=== PATIENT | female | born 1970 | race Caucasian/White ===

== ENCOUNTER → 2019-01-23 11:46 | Outpatient (CLI) | payer BC, SELFPAY ==
--- NOTE | 2019-01-23 | IMM_PTH ---
PATIENT: DERIK SIU LOC: [facility] U#:[id number] AGE/SX: 54/F ROOM: RE01/23/[address]: Dr. Dwayne Roth MD : 1970 BED: DIS: SPEC #: [id number] RECD: 01/24/19 13:43 STATUS: NARAYAN REDenise #: [id number] AGUS: 01/23/19 00:[address]: Dwayne Roth DEPT: IMMUNOHISTOCHEMISTRY RECD BY: Cris Griffiths Tissues: Skin, NOS Procedures: CK5-6 (add) P53 (add) Vimentin (add) Pankeratin (initial) MELAN-A (add) P40 (add) S-100 (add) PHYSICIAN & INSTITUTION [place] [id number] SPECIMEN INFORMATION: Tissue Source: Irregular nevus excision Clinical Info: Rule out melanoma Specimen Number: [id number] CPT code: 94729, 29934 x7 METHODOLOGY: Deparaffinized sections of prefer/formalin-fixed tissue or PAP/DQ stained slides are incubated with monoclonal/polyclonal antibodies/oligonucleotide probes. Localization is made via biotin free immunoperoxidase method. Appropriate controls are performed and reacted as expected. Results on target cell population are indicated in the following table: RESULTS: ANTIBODY / CLONE RESULT AE1-3 (AE1/AE3/PCK26) positive P40 (BC28) positive CK5-6 (D5 & 1684) positive S-100 (4C4.9) negative Melan A (A103) negative Vimentin (V9) negative P53 (DO-7) negative These tests were developed and their performance characteristics determined by [facility]. They may not have been cleared or approved by the U.S. Food and Drug Administration. The FDA has determined that such clearance or approval is not necessary. INTERPRETATION: Irregular nevus, shave biopsy: Consistent with pigmented seborrheic keratosis. AM:elham 01/25/19
--- NOTE | 2019-01-23 09:45 | LES_PTH ---
PATIENT: DERIK SIU LOC: [facility] U#:[id number] AGE/SX: 54/F ROOM: RE01/23/[address]: Dr. Dwayne Roth MD : 1970 BED: DIS: SPEC #: [id number] RECD: 01/23/19 12:54 STATUS: NARAYAN FANNY #: [id number] AGUS: 01/23/19 09:[address]: Dwayne Roth DEPT: SURGICAL PATHOLOGY RECD BY: Cris Griffiths Tissues: Skin, NOS Procedures: Surgery Specimen Level IV HEADER OPERATION: Excision PRE-OP DIAGNOSIS: Rule out melanoma TISSUE SUBMITTED: Irregular nevus excision MICROSCOPIC DIAGNOSIS Irregular nevus, shave biopsy: Pigmented seborrheic keratosis. See comment. AM:elham 01/24/19 COMMENT Immunohistochemistry ([id number]) supports the above diagnosis. MICROSCOPIC DESCRIPTION Slides are reviewed. GROSS DESCRIPTION Received in fixative is one container labeled with the patient's name and designated nevus. The specimen consists of a shave biopsy of ortiz-white skin measuring 1 x 0.5 x 0.1 cm. There is an ovoid brown lesion on the surface measuring 0.6 x 0.3 cm. The specimen is inked and submitted entirely in one cassette. It will be serially sectioned at the time of embedding. / SJ:rg 01/23/19 TC:5 CPT: 22733
== END ==
PROVIDERS: Family Provider Family Medicine; PCP Family Medicine; Referring Provider Family Medicine; Visit Provider Family Medicine
DX: D22.9 Melanocytic nevi, unspecified (principal)
CPT/HCPCS: 88304; 88305; 88341; 88342

== ENCOUNTER 2019-10-23 12:24 | Emergency (ER) | payer OTHER, BC, SELFPAY ==
[2019-10-23 12:26] VITALS: BP 128/83; PULSE 73; RESP 18; TEMP 36.6; O2SAT 96; BMI 24.7
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
[2019-10-23 13:54] VITALS: BP 122/88; PULSE 71; RESP 16; O2SAT 99
== END 2019-10-23 13:55 | disposition home or self-care (01) ==
LOC: ED 12:48
PROVIDERS: Emergency Provider Emergency Medicine; Family Provider Family Medicine; PCP Family Medicine
DX: R07.0 Pain in throat (principal); Y04.2XXA Assault by strike against or bumped into by another person, initial encounter; F17.200 Nicotine dependence, unspecified, uncomplicated
CPT/HCPCS: 70360; 99282

== ENCOUNTER → 2021-01-22 15:11 | Outpatient (CLI) | payer OTHER, SELFPAY ==
[2021-01-28 11:10] LABS: HPV APTIMA, High Risk Negative (Negative)
[2021-01-28 11:11] LABS: HPV Reflexed? YES, CHARGE PATIENT
== END ==
PROVIDERS: PCP Family Medicine; Visit Provider Nurse Practitioner Family
DX: Z01.419 Encounter for gynecological examination (general) (routine) without abnormal findings (principal)
CPT/HCPCS: 87624; 88175; G0145

== ENCOUNTER → 2021-01-28 07:14 | Outpatient (CLI) | payer OTHER, SELFPAY ==
[2021-01-28 10:35] LABS: Vitamin D,25 Hydroxy 53.9 ng/mL
[2021-01-28 10:57] LABS: Anion Gap 5 (5-15); BUN 16 mg/dL (7-18); BUN/Creat Ratio 21.3 RATIO (10-20); Calcium,Total 8.8 mg/dL (8.5-10.1); Chloride 106 mmol/L (98-107); Cholesterol 225 mg/dL (200); Creatinine, Serum 0.75 mg/dL (0.55-1.02); EST Glomerular Filtration Rate 87 mL/min (>60); Est Glom Filt Rate - Afr Amer 105 mL/min (>60); Glucose 100 mg/dL (74-106); High Density Lipoprotein 65 mg/dL; Sodium Level 139 mmol/L (136-145); Thyroid Stim Hormone (TSH) 2.62 uIU/mL (0.358-3.74); Triglycerides 72 mg/dL; Very Low Density Lipoprotein 14 mg/dL (5-40)
== END ==
LOC: MTLAB 07:15
PROVIDERS: PCP Family Medicine; Referring Provider Family Medicine; Visit Provider Family Medicine
DX: R73.01 Impaired fasting glucose (principal); F32.9 Major depressive disorder, single episode, unspecified
CPT/HCPCS: 36415; 80048; 80061; 82306; 84443

== ENCOUNTER → 2021-02-03 15:15 | Outpatient (CLI) | payer OTHER, SELFPAY ==
--- NOTE | 2021-02-03 15:32 | BI_ITS ---
MAMMOGRAPHY - BILATERAL SCREENING REASON FOR EXAM: Female, 50 years old. Routine annual screening examination. PERTINENT HISTORY: Non-contributory. TECHNIQUE: Digital bilateral breast dino (3D mammographic acquisition) in the CC and MLO projections. 2-D mediolateral oblique (MLO) and craniocaudad (CC) views of both breasts were obtained. CAD: Full Field Digital Mammography with Computer Added Detection was performed. COMPARISON: Comparison is made with prior outside examination dated 12/24/2014. FINDINGS: Breast Composition: There are scattered areas of fibroglandular density. There are no dominant masses or suspicious calcifications. Stable small benign-appearing bilateral axillary lymph nodes. No other significant abnormalities are identified. There has been no significant change since the prior study. BI/SCRN MAMM (CAD)W/DINO BILAT IMPRESSION: Stable bilateral screening mammogram. Yearly follow-up mammogram recommended. (A) ASSESSMENT CATEGORY: BIRADS Category 2: Benign. A letter regarding these results will be sent to the patient by the facility within 30 days. Approximately 10% of breast cancers are not detected by mammography. A normal mammogram should not delay biopsy of a clinically suspicious abnormality. [id number] Electronically Signed: Willian Marin MD at 8:10 EDT , Service support ,
== END ==
PROVIDERS: PCP Family Medicine; Referring Provider Family Medicine; Visit Provider Family Medicine
DX: Z12.31 Encounter for screening mammogram for malignant neoplasm of breast (principal)
CPT/HCPCS: 77063; 77067

== ENCOUNTER 2022-01-29 14:11 | Outpatient (CLI) | payer OTHER, SELFPAY ==
--- NOTE | 2022-01-29 14:14 | CT_ITS ---
STUDY: LOW DOSE CT LUNG CANCER SCREENING REASON FOR EXAM: Female, 51 years old. Current smoker, one half pack per day x33 years RADIATION DOSAGE (If Supplied By Facility): CTDIvol = ( 2.01 ) mGy, DLP = ( 68.71 ) mGycm TECHNIQUE: No contrast was administered. Low dose technique was utilized (average mAS-38 and kVp 120). 1.25 mm axial source images with a slice interval of 1.25-mm were reconstructed in lung windows. 2.5 mm axial source images with a slice interval of 2.5-mm were reconstructed in lung windows. 5.0 mm axial source images with a slice interval of 5.0-mm were reconstructed in soft tissue windows. Nodule measured using lung windows on PACS and/or independent workstation with automated measurement of minimum and maximum diameter. Nodule measurement reported as average diameter rounded to the nearest whole number. Growth is defined as an increase ins size of greater than 1.5 mm. COMPARISON: None. FINDINGS: Lung windows show underlying emphysema with chronic interstitial changes. There is no organized trait, or suspicious noncalcified mass or nodule. Limited soft tissue evaluation shows a normal thyroid gland. No suspicious adenopathy. No calcified coronary vessels, no pleural or pericardial effusions. Bony structures show degenerative change Limited cuts of the upper abdomen do not show a suspicious abnormality CT/Low Dose CT Lung Screening IMPRESSION: Lung-RADS category 2 - Continue annual screening with LDCT in 12 months. IMPORTANT NOTES FOR USE: ACR Lung-RADS Version 1.1 Assessment Categories Release Date: 2018 Category: Coded 0-4 bases on nodule(s) with highest degree of suspicion. Negative screen is defined as categories 1 and 2; a positive screen is defined as categories 3 and 4. Category 3 and 4A nodules that are unchanged on interval CT should be coded as category 2, and individuals returned to screening in 12 months. Category 4X: Category 3 or 4 nodules with additional imaging findings that increase the suspicion of lung cancer, such as spiculation, GGN that doubles in size in 1 year, enlarged lymph notes, etc. Category Modifiers: S (significant finding unrelated to lung cancer) Electronically Signed: Sajan Camargo MD at 17:46 EST ,
== END 2022-01-29 23:59 | disposition home or self-care (01) ==
LOC: CT 14:13
PROVIDERS: PCP Family Medicine; Referring Provider Family Medicine; Visit Provider Family Medicine
DX: F17.200 Nicotine dependence, unspecified, uncomplicated (principal)
CPT/HCPCS: 71271

== ENCOUNTER 2022-02-04 11:10 | Outpatient (CLI) | payer OTHER, SELFPAY ==
--- NOTE | 2022-02-04 11:24 | BI_ITS ---
MAMMOGRAPHY - BILATERAL SCREENING 3-D TOMOSYNTHESIS REASON FOR EXAM: Female, 51 years old. SCREENING PERTINENT HISTORY: No significant family history. TECHNIQUE: 2-D mammograms and 3-D Tomosynthesis of the breast (s) were performed. CAD was performed. COMPARISON: 02/03/2021 FINDINGS: The breast composition is composed of scattered fibroglandular density. Scattered benign calcifications are seen. No dense spiculated masses or suspicious microcalcifications are identified. No architectural distortion is identified. There is no skin thickening or retraction. There has been no significant change since the prior study. BI/SCRN MAMM (CAD)W/DINO BILAT IMPRESSION: No mammographic signs of malignancy. Routine yearly mammograms recommended. ASSESSMENT CATEGORY: BIRADS Category 1: Negative. A letter regarding these results will be sent to the patient by the facility within 30 days. FOLLOW UP RECOMMENDATION: Yearly follow up mammogram recommended. (A) Approximately 10% of breast cancers are not detected by mammography. A normal mammogram should not delay biopsy of a clinically suspicious abnormality. Electronically Signed: Itz Irwin MD at 13:11 EDT ,
== END 2022-02-04 23:59 | disposition home or self-care (01) ==
LOC: OPBI 11:11
PROVIDERS: PCP Family Medicine; Referring Provider Family Medicine; Visit Provider Family Medicine
DX: Z12.31 Encounter for screening mammogram for malignant neoplasm of breast (principal)
CPT/HCPCS: 77063; 77067

== ENCOUNTER → 2023-01-24 | Outpatient (CLI) | payer OTHER, SELFPAY ==
[2023-01-24 13:35] LABS: Vitamin B12 > 2000 pg/mL (211-911); Vitamin D,25 Hydroxy 54.4 ng/mL
[2023-01-24 13:57] LABS: ALB/GLOB Ratio 1.1 RATIO (0.9-2.4); AST(SGOT) 14 U/L (15-37); Alanine Aminotransfer ALT/SGPT 21 U/L (13-56); Albumin, Serum 3.8 g/dL (3.2-5.0); Alkaline Phosphatase 83 U/L (45-117); Anion Gap 8 (5-15); BUN 16 mg/dL (7-18); BUN/Creat Ratio 20.7 RATIO (10-20); Bilirubin, Direct 0.16 mg/dL (0.00-0.30); Chloride 104 mmol/L (98-107); Cholesterol 213 mg/dL (200); Creatinine, Serum 0.77 mg/dL (0.55-1.02); EST Glomerular Filtration Rate 83 mL/min (>60); Est Glom Filt Rate - Afr Amer 100 mL/min (>60); Globulin 3.5 g/dL (2.2-4.2); Glucose 101 mg/dL (74-106); High Density Lipoprotein 73 mg/dL; Potassium 4.1 mmol/L (3.5-5.1); Protein, Total 7.3 g/dL (6.4-8.2); Sodium Level 139 mmol/L (136-145); Thyroid Stim Hormone (TSH) 2.03 uIU/mL (0.358-3.74); Triglycerides 55 mg/dL; Very Low Density Lipoprotein 11 mg/dL (5-40)
== END | disposition home or self-care (01) ==
LOC: MFPLAB 10:43
PROVIDERS: PCP Family Medicine; Visit Provider Family Medicine
DX: R53.83 Other fatigue (principal); K21.9 Gastro-esophageal reflux disease without esophagitis; Z13.220 Encounter for screening for lipoid disorders
CPT/HCPCS: 36415; 80053; 80061; 82248; 82306; 82607; 84443

== ENCOUNTER → 2023-02-04 | Outpatient (CLI) | payer OTHER, SELFPAY ==
--- NOTE | 2023-02-04 14:01 | CT_ITS ---
HISTORY: nondependent tobacco use disorder. TECHNIQUE: Helically acquired images were obtained of the chest without contrast. A radiation dose optimization technique was used for this scan. 816 images. COMPARISON: 01/29/2022. FINDINGS: LARGE AIRWAYS: Patent. LUNGS: Emphysema with chronic biapical scarring. Stable 2 to 3 mm groundglass, noncalcified nodules, and small scars predominantly in the upper lobes. PLEURA: No pneumothorax or significant pleural effusion. HEART/PERICARDIUM: Heart within normal limits in size. Coronary artery calcification present. No pericardial effusion. VESSELS: Thoracic aorta nondilated. Mild atherosclerosis. MEDIASTINUM/VELIA: Stable small precarinal lymph node. UPPER ABDOMEN: Unremarkable. BONES: Degenerative change. CT/Low Dose CT Lung Screening IMPRESSION: No significant interval change in emphysema with 2 to 3 mm pulmonary nodules. Lung RADS category 2: Continue annual screening with low dose CT. Electronically Signed: Ida Seymour MD at 15:21 EDT ,
== END | disposition home or self-care (01) ==
LOC: CT 14:01
PROVIDERS: PCP Family Medicine; Referring Provider Family Medicine; Visit Provider Family Medicine
DX: F17.200 Nicotine dependence, unspecified, uncomplicated (principal)
CPT/HCPCS: 71271

== ENCOUNTER → 2023-02-11 | Outpatient (CLI) | payer OTHER, SELFPAY ==
--- NOTE | 2023-02-11 10:17 | BI_ITS ---
MAMMOGRAPHY - BILATERAL SCREENING REASON FOR EXAM: Female, 52 years old. Routine annual screening examination. PERTINENT HISTORY: Non-contributory. TECHNIQUE: Digital bilateral breast dino (3D mammographic acquisition) in the CC and MLO projections. 2-D mediolateral oblique (MLO) and craniocaudad (CC) views of both breasts were obtained. CAD: Full Field Digital Mammography with Computer Added Detection was performed. COMPARISON: Comparison is made with prior study dated February 04, 2022 and February 03, 2021. FINDINGS: Breast Composition: There are scattered areas of fibroglandular density. There are no dominant masses or suspicious calcifications. Stable benign-appearing bilateral axillary lymph nodes. No other significant abnormalities are identified. There has been no significant change since the prior study. BI/SCRN MAMM (CAD)W/DINO BILAT IMPRESSION: Stable bilateral screening mammogram. Yearly follow-up mammogram recommended. (A) ASSESSMENT CATEGORY: BIRADS Category 2: Benign. A letter regarding these results will be sent to the patient by the facility within 30 days. Approximately 10% of breast cancers are not detected by mammography. A normal mammogram should not delay biopsy of a clinically suspicious abnormality. [id number] Electronically Signed: Willian Marin MD at 11:54 EDT ,
== END | disposition home or self-care (01) ==
LOC: OPBI 10:16
PROVIDERS: PCP Family Medicine; Referring Provider Family Medicine; Visit Provider Family Medicine
DX: Z12.31 Encounter for screening mammogram for malignant neoplasm of breast (principal)
CPT/HCPCS: 77063; 77067

== ENCOUNTER → 2024-02-01 | Outpatient (CLI) | payer OTHER, SELFPAY ==
[2024-02-01 12:19] LABS: Hematocrit 42.8 % (37-47); Hemoglobin 13.8 g/dL (12.0-15.0); Mean Corp Hgb Conc 32.2 g/dL (32-36); Mean Corpuscular Hgb 31.9 pg (27.0-32.0); Mean Corpuscular Volume 98.8 fL (81-99); Platelet Count 419 K/mm3 (150-450); RBC Distribution Width CV 13.7 % (11.6-14.6); RBC Distribution Width SD 49.9 fl (35.1-43.9); Red Blood Count 4.33 M/mm3 (4.2-5.4); White Blood Count 8.9 K/mm3 (4.4-11.0)
[2024-02-01 12:50] LABS: Anion Gap 8 (5-15); BUN 9 mg/dL (7-18); Calcium,Total 9.4 mg/dL (8.5-10.1); Chloride 103 mmol/L (98-107); Cholesterol 208 mg/dL (200); Creatinine, Serum 0.69 mg/dL (0.55-1.02); EST Glomerular Filtration Rate 94 mL/min (>60); Est Glom Filt Rate - Afr Amer 114 mL/min (>60); Glucose 103 mg/dL (74-106); High Density Lipoprotein 65 mg/dL; Potassium 4.1 mmol/L (3.5-5.1); Sodium Level 139 mmol/L (136-145); Triglycerides 89 mg/dL; Very Low Density Lipoprotein 18 mg/dL (5-40)
[2024-02-01 12:51] LABS: Vitamin B12 547 pg/mL (211-911); Vitamin D,25 Hydroxy 56.8 ng/mL
--- OUTSIDE RECORDS SUMMARY | 2024-02-01 13:14 | XMS RPT_ITS | CCD ---
Author Name Unknown Address [address] [place] [address] Organization [facility] Care Team Providers Care Manager Telemarketing Name Role Phone KATHRINE JACOBO Attending Unavailable LEVI AMES Primary Care Unavail able Results Test Name Value Interpretation Reference Range Facil ity Encounters Encounter Date Encounter Type Care Provider Facility Start: 05-25-2022 End: 05-25-2022 Emergency department patient visit KATHRINE ALVAERZAron JACOBO [facility] Payers Date Payer Category Payer Worker's Compensation [id number] 1970 Unknown [id number] Summary Purpose Family History No Family History Records FoundNo Family History Records Found Advance Directives No Advanced Directives Records FoundNo Advanced Directives Records Found Additional Source Comments INFORMATION SOURCE (unrecogn ized section and content) DATE CREATED AUTHOR AUTHOR'S ORGANIZ ATION 05/29/2022 [facility] nter FOR RECORDS PERTAINING TO PATIENTS WHO ARE OR HAVE BEEN ENROLLED IN A CHEMICAL DEPENDENCY/SUBSTANCEABUSE PROGRAM, SOME INFORMATION MAY BE OMITTED. This clinical summary was aggregated from multiple sources. Caution should be exercised in using it in the provision of clinical care. This summary normalizes information from multiple sources, and as a consequence, information in this document may materially change the coding, format and clinical context of patient data. In addition, data may be omitted in some cases. CLINICAL DECISIONS SHOULD BE BASED ON THE PRIMARY CLINICAL RECORDS. [facility] [employer] provides no warranty or guarantee of the accuracy or completeness of information in this document.
== END | disposition home or self-care (01) ==
LOC: MFPLAB 10:21
PROVIDERS: PCP Family Medicine; Visit Provider Family Medicine
DX: F17.200 Nicotine dependence, unspecified, uncomplicated (principal); R53.83 Other fatigue; R73.01 Impaired fasting glucose
CPT/HCPCS: 36415; 80048; 80061; 82306; 82607; 85027

== ENCOUNTER → 2024-02-17 | Outpatient (CLI) | payer OTHER, SELFPAY ==
--- NOTE | 2024-02-17 12:47 | CT_ITS ---
EXAM: CT CHEST, LUNG CANCER SCREENING WITHOUT INTRAVENOUS CONTRAST CLINICAL INDICATION: and gt;30 pack years TECHNIQUE: Helically acquired images were obtained of the chest without intravenous contrast using low dose (LDCT) lung cancer screening protocol. This CT exam was performed using one or more of the following dose reduction techniques: automated exposure control, adjustment of the mA and/or kV according to patient size, and/or use of iterative reconstruction technique. COMPARISON: 02/04/2023. FINDINGS: LUNGS AND PLEURAL SPACES: Noncalcified nodules in the left upper lobe laterally that measures 2. These are not significantly changed. No pleural effusion or thickening. No pneumothorax. HEART: Unremarkable. Heart size is normal. No pericardial effusion. No significant coronary artery calcifications. MEDIASTINUM: Unremarkable. No mediastinal or hilar adenopathy. Esophagus is unremarkable. No hiatal hernia. THYROID: Unremarkable. No thyroid lesions. BONES/JOINTS: Unremarkable. No suspicious lytic or blastic abnormality. VASCULATURE: Unremarkable. Thoracic aorta is non-dilated. LYMPH NODES: Unremarkable. No enlarged lymph nodes. CT/Low Dose CT Lung Screening IMPRESSION: Small noncalcified nodules in the left upper lobe which are stable from the reference exam. There is no acute pulmonary abnormality. Lung-RADS score: 2 - Benign Appearance or Behavior. Recommend continued annual screening with a low-dose CT (LDCT) in 12 months. Electronically Signed: Juvenal Singer MD at 23:54 EDT ,
--- NOTE | 2024-02-17 13:23 | BI_ITS ---
MAMMOGRAPHY - BILATERAL SCREENING REASON FOR EXAM: Female, 53 years old. Routine annual screening examination. PERTINENT HISTORY: Non-contributory. TECHNIQUE: Digital bilateral breast dino (3D mammographic acquisition) in the CC and MLO projections. 2-D mediolateral oblique (MLO) and craniocaudad (CC) views of both breasts were obtained. CAD: Full Field Digital Mammography with Computer Added Detection was performed. COMPARISON: Comparison is made with prior study dated February 11, 2023 and February 04, 2022. FINDINGS: Breast Composition: There are scattered areas of fibroglandular density. There are no dominant masses or suspicious calcifications. Stable small benign-appearing bilateral axillary lymph nodes. No other significant abnormalities are identified. There has been no significant change since the prior study. BI/SCRN MAMM (CAD)W/DINO BILAT IMPRESSION: Stable bilateral screening mammogram. Yearly follow-up mammogram recommended. (A) ASSESSMENT CATEGORY: BIRADS Category 2: Benign. A letter regarding these results will be sent to the patient by the facility within 30 days. Approximately 10% of breast cancers are not detected by mammography. A normal mammogram should not delay biopsy of a clinically suspicious abnormality. [id number] Electronically Signed: Willian Marin MD at 15:52 EDT ,
== END | disposition home or self-care (01) ==
LOC: CT 12:46
PROVIDERS: PCP Family Medicine; Referring Provider Family Medicine; Visit Provider Family Medicine
DX: Z12.31 Encounter for screening mammogram for malignant neoplasm of breast (principal); Z12.2 Encounter for screening for malignant neoplasm of respiratory organs; F17.200 Nicotine dependence, unspecified, uncomplicated
CPT/HCPCS: 71271; 77063; 77067

== ENCOUNTER → 2024-03-28 | Outpatient (CLI) | payer OTHER, SELFPAY ==
--- NOTE | 2024-03-28 08:52 | ECHOD_ITS ---
Reason For Study: SHORTNESS OF BREATH Procedure This was a 2D Doppler, Color Flow transthoracic echocardiogram. Exam performed in department. Left Ventricle Normal LV size. Left ventricular systolic function is normal. The estimated ejection fraction is 65 %. Stage 1 diastolic dysfunction. No regional wall motion abnormalities noted. Right Ventricle Normal RV size. Normal systolic function. Atria Normal left atrium. Normal right atrium. Mitral Valve Normal mitral valve. Tricuspid Valve Normal tricuspid valve. Aortic Valve Normal aortic valve. Pulmonic Valve Normal pulmonic valve. Great Vessels Normal aortic root. The pulmonary artery is normal size. Normal inferior vena cava. Pericardium/Pleural No pericardial effusion. MMode/2D Measurements & Calculations LVIDd: 4.6 cm IVSd: 0.84 cm LVOT diam: 1.9 cm LVIDs: 2.7 cm LVPWd: 0.75 cm LVOT area: 3.0 cm2 RVDd: 2.6 cm FS: 40.5 % Ao root diam: 2.9 cm LAV(MOD-bp): 32.6 ml LVAd ap4: 22.1 cm2 LAV(MOD-bp) Indexed: 19.1 ml/m2 LVLd ap4: 7.4 cm LAV(MOD-sp2): 40.2 ml EDV(MOD-sp4): 53.6 ml LAV(MOD-sp4): 23.0 ml EDV(sp4-el): 56.0 ml LVAs ap4: 10.9 cm2 LVLs ap4: 5.4 cm ESV(MOD-sp4): 19.3 ml ESV(sp4-el): 18.7 ml EF(MOD-sp4): 64.0 % EF(sp4-el): 66.6 % LVAd ap2: 25.7 cm2 SV(MOD-sp4): 34.3 ml SV(MOD-sp2): 53.1 ml LVLd ap2: 7.1 cm EDV(MOD-sp2): 76.9 ml EDV(sp2-el): 79.7 ml LVAs ap2: 12.8 cm2 LVLs ap2: 5.8 cm ESV(MOD-sp2): 23.8 ml ESV(sp2-el): 24.1 ml EF(MOD-sp2): 69.1 % SV(sp4-el): 37.3 ml LA dimension(2D): 3.6 cm LA A4 area: 11.0 cm2 RA A4 area: 9.6 cm2 TAPSE: 1.9 cm Time Measurements MV dec time: 0.21 sec Doppler Measurements & Calculations MV E max abimael: 70.8 cm/sec Lat Peak E' Abimael: 16.6 cm/sec Med Peak E' Abimael: 10.8 cm/sec MV A max abimael: 71.2 cm/sec E/E' lat: 4.3 E/E' med: 6.6 MV E/A: 0.99 Ao V2 max: 148.1 cm/sec LV V1 max: 119.3 cm/sec MV dec slope: 345.2 cm/sec2 Ao max P.8 mmHg LV V1 max P.7 mmHg Ao V2 mean: 98.4 cm/sec LV V1 mean P.0 mmHg Ao mean P.5 mmHg LV V1 mean: 81.3 cm/sec Ao V2 VTI: 35.4 cm LV V1 VTI: 26.9 cm AV (velocity ratio): 0.76 CORDELIA(I,D): 2.3 cm2 CORDELIA(V,D): 2.4 cm2 SV(LVOT): 79.8 ml PA V2 max: 88.0 cm/sec PA max PG (full): 0.58 mmHg ECHO/Echo Complete Interpretation Summary Normal LV size. Left ventricular systolic function is normal. The estimated ejection fraction is 65 %. Stage 1 diastolic dysfunction. Ordering Physician: Dwayne Roth Referring Physician: Dwayne Roth Performed By: Fatou Boyd RDCS
== END | disposition home or self-care (01) ==
LOC: CVS 08:51
PROVIDERS: PCP Family Medicine; Referring Provider Family Medicine; Visit Provider Family Medicine
DX: R06.02 Shortness of breath (principal)
CPT/HCPCS: 93306

== ENCOUNTER 2025-01-08 15:01 | Observation (INO) | payer OTHER, SELFPAY ==
[2025-01-08] VITALS (13 sets, daily range): BP systolic 108–164; BP diastolic 69–90; PULSE 51–86; RESP 14–29; TEMP 35.9–36.7; O2SAT 94–99; BMI 26.5; BMI 28.0
--- NOTE | 2025-01-08 15:11 | RAD_ITS ---
PROCEDURE: CHEST 1 VIEW REASON FOR EXAM: Neuro deficit, acute stroke suspected TECHNIQUE: Frontal and lateral views of the chest. COMPARISON: None. FINDINGS: Heart size is mildly enlarged. The thoracic aorta is tortuous and calcified. The lungs are clear. The bones are unremarkable. RAD/Chest 1 View IMPRESSION: Mild cardiomegaly with no acute pulmonary disease Reading Location: [facility]
--- NOTE | 2025-01-08 15:11 | CT_ITS ---
EXAM: STROKE BRAIN/HEAD WITHOUT CONT CLINICAL HISTORY: Neuro deficit, acute stroke suspected No change to previously provided findings and impression following review of 3-D reconstructed images. COMPARISON: None. TECHNIQUE: Noncontrast images of the head with multiplanar reconstructions. Dose reduction techniques were used including intermediate exposure control (AEC),iterative reconstruction technique, and/or mA and/or KV dose adjustments based on patient's size. FINDINGS: CT HEAD FINDINGS: No acute intracranial hemorrhage, mass, mass effect, midline shift or pathologic extra-axial fluid collection. No hydrocephalus. Age- appropriate cerebral volume and white matter. There is mild thickening in the left maxillary sinus. The calvarium is grossly intact. CT/STROKE Brain/Head without Cont IMPRESSION: 1. No CT evidence of acute intracranial pathology. 2. Left maxillary sinusitis Findings communicated to Dr. Chan Patel on 01/08/25 at 1537 Reading Location: [facility]
--- NOTE | 2025-01-08 15:12 | EX.ED.DYSGE1 ---
HPI History of Present Illness Chief Complaint: Stroke Alert [facility] Medical History (Updated 01/08/25 @ 19:[address] Bethany Mcmanus MD) Inflammatory bowel disease COPD (chronic obstructive pulmonary disease) Home Medications ?Medication ?Instructions ?Recorded ?Last Taken ?Type ascorbic acid (vitamin C) 500 mg 500 mg PO DAILY 01/08/25 01/08/25 History tablet (C-500) cholecalciferol (vitamin D3) 125 125 mcg PO DAILY 01/08/25 01/08/25 History mcg (5,000 unit) tablet (Vitamin D3) loratadine 10 mg tablet 10 mg PO DAILY 01/08/25 01/08/25 History (Allerclear) omeprazole 40 mg capsule,delayed 40 mg PO DAILY 01/08/25 01/08/25 History release tiotropium bromide 18 mcg capsule 1 cap inhalation DAILY 01/08/25 01/08/25 History with inhalation device (Spiriva with HandiHaler) Allergy/AdvReac Type Severity Reaction Status Date / Time No Known Allergies Allergy Verified 01/08/25 15:02 Social History Smoking Status: Current every day smoker tobacco type: cigarettes EXAM Physical Exam Const Vital Signs: 01/08/25 15:06 01/08/25 15:10 01/08/25 15:25 Temperature 96.7 F L Temperature Source Temporal Pulse Rate 71 86 Respiratory Rate 15 15 Blood Pressure 141/90 H 141/90 H Blood Pressure Mean 107 107 Pulse Ox 96 99 Oxygen Delivery Method Room Air Room Air Room Air 01/08/25 15:28 01/08/25 15:49 01/08/25 16:01 Temperature Temperature Source Pulse Rate 70 70 69 Respiratory Rate 29 H 20 H 18 Blood Pressure 161/81 H 161/81 H 132/82 H Blood Pressure Mean 107 107 98 Pulse Ox 96 97 98 Oxygen Delivery Method Room Air Room Air Room Air 01/08/25 16:06 01/08/25 17:00 01/08/25 17:55 Temperature Temperature Source Pulse Rate 66 65 61 Respiratory Rate 14 19 H 18 Blood Pressure 113/82 H 132/74 H 108/87 H Blood Pressure Mean 92 93 94 Pulse Ox 99 94 96 Oxygen Delivery Method Room Air Room Air Room Air 01/08/25 18:01 01/08/25 18:49 01/08/25 19:28 Temperature 96.7 F L 97.3 F L Temperature Source Oral Pulse Rate 54 L 59 L 55 L Respiratory Rate 17 16 17 Blood Pressure 134/89 H 136/86 H 147/69 H Blood Pressure Mean 104 102 95 Pulse Ox 96 95 97 Oxygen Delivery Method Room Air Room Air [facility] [place] N[place] Medical decision making narrative: HISTORY OF PRESENT ILLNESS: 54-year-old female presents with decree sensation left side of her face and left hand that began at approximately 9:30 AM on 01/08/2025. Last known well at 9:30 AM. Denies any head trauma or falls. Denies any chest pain. Notes some purple discoloration of her left hand. States symptoms have been constant. No alleviating exacerbating features. Denies history of strokes. Denies history of high blood pressure, high cholesterol diabetes. REVIEW OF SYSTEMS: Pertinent positives: Paresthesias, numbness, left hand discoloration Pertinent negatives: Headache, chest pain PHYSICAL EXAM: Nursing triage notes reviewed, Vital signs reviewed Constitutional: please see [facility] HENT: MMM Eyes: Pupils equal round and reactive to light, Extraocular muscles intact Neck: No stridor, no JVD, full neck ROM Lungs: Clear to auscultation, No wheezing or rales. No increased work of breathing, no conversational dyspnea, no accessory muscle use, no nasal flaring. No respiratory distress noted Heart: Regular rate and rhythm, No murmurs, No rubs and No gallops, 2+ distal pulses (radial, femoral, posterior tibial) in all extremities Abdomen: Soft, there is no tenderness, rigidity, rebound or guarding, no obvious peritoneal signs, no palpable pulsatile abdominal masses, no auscultated abdominal bruit : No CVAT Extremities: No edema, left upper extremity with discoloration noted to the 2nd through 5th digits. Warm, otherwise well-perfused, intact capillary refill. Intact radial pulse. Neuro: Alert and oriented x3, neuro exam at baseline, cranial nerves II through XII are intact. No pain with extraocular muscle movement. There is negative test of skew. 5 of 5 strength in upper and lower extremities in flexion extension. Intact sensation to light touch in upper and lower extremity dermatomes (however the patient notes subjective decrease sensation left face, left hand). No truncal or extremity ataxia. No dysdiadochokinesia. Normal gait. 2+ reflexes in upper and lower extremities. No meningeal signs. Negative Babinski. NIH of 2. Skin: Purple discoloration of the left hand however the hand is warm, well-perfused with intact radial pulse MEDICAL DECISION MAKING: Chief Complaint: Numbness, paresthesia External records reviewed: Reviewed prior imaging studies Factors affecting care: GERD Social determinants of health: denies illicit drug use History obtained from others: none Consults: Stroke neurology (Dr. Subramanian), [facility] vascular surgery (Dr. Sheffield), internal medicine (Dr. Mcmanus) MDM Narrative: Patient was initially hemodynamically stable, afebrile and nontoxic-appearing. Initial neuroexam showed subjective sensory changes in the left face and left hand as well as slight dysarthria consistent with an NIH stroke scale of 2 I considered the following differential diagnosis: CVA, TIA, ICH, focal seizure, Yaron's paralysis Given the patient was in the 24-hour window code stroke was called per triage patient was evaluated immediately. She was taken immediately to CT scan. I initially evaluated the patient with a broad lab and imaging workup including a Noncon CT of the head as well as a CT of the head and neck per stroke protocol. ALL IMAGES (IF OBTAINED) HAVE BEEN PERSONALLY REVIEWED AND INTERPRETED BY MYSELF. EKG with sinus bradycardia rate of 56, normal axis, normal intervals, no STEMI, no sign of arrhythmia Noncon CT of the head shows no evidence of ICH or mass CT of the head neck shows no evidence of large vessel occlusion CBC without leukocytosis, severe anemia, no thrombocytopenia. No coagulopathy BMP without evidence of significant electrolyte abnormalities, no anion gap, no acute kidney injury. I have personally reviewed the patient's chest x-ray. Chest x-ray is unremarkable for pulmonary edema, pneumothorax, pneumonia or focal cardiopulmonary abnormality. Given patient's initial NIH stroke scale of 2 and concern for vascular pathology given discoloration of the left upper extremity she was initially going to be transferred to [facility]. We did not have vascular surgery available here [facility]. Accepting physician was initially Dr. Subramanian (Neurology). However during the patient's ED course she had complete resolution of discoloration of left upper extremity. I suspect she is having from Raynaud's phenomenon versus embolic phenomenon. Given patient was essentially asymptomatic had resolution of her initial subjective sensory change in the face and left upper extremity and her NIH was 0 I thought it was appropriate to keep her here [facility] as she would not benefit from transfer to higher level of care. Patient agreed. Discussed with the hospitalist agreed admit the patient. Of note the hospitalist reached out to Dr. Heredia (vascular surgery at [facility] ). He was okay with the patient staying here [facility] as well. The patient and/or family, caregivers express understanding. The patient and/or family, caregivers agrees with the plan. Shared decision making: I will have a discussion with the patient and or visitors regarding risk/benefits of further testing or admission. They will be made aware of of the risk/benefits inherent in this decision they will be given the opportunity to voice understanding. Total critical care time today provided was at least 35 minutes. This excludes separately billable procedures. Critical care time (if documented) is secondary to the patient having high probability of clinically significant/life threatening deterioration in the patient's condition which required my urgent intervention. Impression: 1. Left hand paresthesias 2. Hand cyanosis Dispo: Admit This note was generated with PlayerTakesAll dictation software. It may contain incorrect words, spelling, and punctuation that were not noted in review of the chart prior to signing. Lab Data Labs: Laboratory Results - last 24 hr 01/08/25 01/08/25 15:07 15:18 WBC 9.8 RBC 4.17 L Hgb 13.8 Hct 41.0 MCV 98.3 MCH 33.1 H MCHC 33.7 RDW Std Deviation 46.8 H RDW Coeff of Davey 13.0 Plt Count 326 MPV 10.2 Immature Gran % (Auto) 0.300 Neut % (Auto) 52.8 Lymph % (Auto) 34.6 [place] % (Auto) 10.4 H Eos % (Auto) 1.2 Baso % (Auto) 0.7 Absolute Neuts (auto) 5.2 Absolute Lymphs (auto) 3.39 Nucleated RBC % 0 PT 12.8 INR 0.9 APTT 26.7 Sodium 143 Potassium 3.4 L Chloride 108 H Carbon Dioxide 31.0 Anion Gap 4 L BUN 11 Creatinine 0.82 Estim Creat Clear Calc 73.57 Est GFR (MDRD) Af Amer 93 Est GFR (MDRD) Non-Af 77 BUN/Creatinine Ratio 13.4 Glucose 124 H Calcium 8.9 Troponin I High Sens 4 POC Glucose 134 H Radiography Diagnostic Testing: Clinical Impression(s) from Imaging Studies Brain CT 01/08/25 15:11 IMPRESSION: 1. No CT evidence of acute intracranial pathology. 2. Left maxillary sinusitis Findings communicated to Dr. Chan Patel on 01/08/25 at 1537 Reading Location: [facility] Chest X-Ray 01/08/25 15:11 IMPRESSION: Mild cardiomegaly with no acute pulmonary disease Reading Location: [facility] Head/Neck CTA 01/08/25 15:20 IMPRESSION: No hemodynamically significant stenosis in the arteries of the head and neck. No large vessel occlusion. One or more dose reduction techniques were used (e.g., Automated exposure control, adjustment of the mA and/or kV according to patient size, use of iterative reconstruction technique). Reading Location: [facility] Discharge Plan Disposition Disposition: Acute Care Hospital [facility] Discharge Date/Time: 01/08/25 20:40
--- NOTE | 2025-01-08 15:15 | ED.RN ---
Called [facility] for Stroke Alert. Will call back when pt is back into room from imaging.
--- NOTE | 2025-01-08 15:20 | CT_ITS ---
PROCEDURE: STROKE CTA HEAD AND NECK W/CON REASON FOR EXAM: Neuro deficit, acute stroke suspected TECHNIQUE: CTA imaging of the head and neck from the aortic arch to the skull vertex with intravenous contrast. 3D reconstructions. CONTRAST: COMPARISON: None. # of known CTs in the past 12 months: 0 # of known Cardiac Nuclear Medicine Studies in the past 12 months: 0 FINDINGS: Aortic Arch: Normal size and branching pattern. No significant atherosclerotic plaque. Brachiocephalic and Subclavians: Unremarkable RIGHT Carotid: Right CCA: Unremarkable. Right ICA: Unremarkable. Maximum stenosis (NASCET): 0 % Right ECA: Unremarkable. LEFT Carotid: Left CCA: Unremarkable. Left ICA: Unremarkable. Maximum stenosis (NASCET): 0 % Left ECA: Unremarkable. Vertebrals: Codominant. Arise from the subclavians. Both vertebrals form the basilar. RIGHT Vertebral: Unremarkable. LEFT Vertebral: Unremarkable. No intracranial aneurysms or large vascular malformations are identified. Anterior cerebral arteries: Unremarkable. Middle cerebral arteries: Unremarkable. Basilar artery: Unremarkable. Posterior cerebral arteries: Unremarkable. Other major branches of the posterior circulation: Unremarkable. Major venous structures: Unremarkable. Other findings: No lymphadenopathy. Lung apices are clear. Bones are unremarkable. CT/STROKE CTA Head AND Neck W/Con IMPRESSION: No hemodynamically significant stenosis in the arteries of the head and neck. No large vessel occlusion. One or more dose reduction techniques were used (e.g., Automated exposure contr ol, adjustment of the mA and/or kV according to patient size, use of iterative reconstruction technique). Reading Location: [facility]
[2025-01-08 15:25] LABS: Absolute Lymphocyte Count 3.39 X10^3/uL (0.83-4.51); Absolute Neutrophil Count 5.2 X10^3/uL (2.0-7.7); Basophil# 0.07 X10^3/uL; Basophil% 0.7 % (0-1); Eosinophil# 0.12 X10^3/uL; Eosinophils% 1.2 % (0-5); Hemoglobin 13.8 g/dL (12.0-15.0); Lymphocyte # 3.39 X10^3/ul (0.83-4.51); Lymphocyte % 34.6 % (19-41); Mean Corp Hgb Conc 33.7 g/dL (32-36); Mean Corpuscular Hgb 33.1 pg (27.0-32.0); Mean Corpuscular Volume 98.3 fL (81-99); Mean Platelet Vol. 10.2 fl (6.2-12.0); Monocyte# 1.02 X10^3/uL; Monocyte% 10.4 % (0-10); NRBC Flagged by Analyzer 0 % (0-5); Neutrophil # 5.17 X10^3/uL (2.7-7.7); Neutrophil % 52.8 % (47-70); Platelet Count 326 K/mm3 (150-450); RBC Distribution Width SD 46.8 fl (35.1-43.9); Red Blood Count 4.17 M/mm3 (4.2-5.4); White Blood Count 9.8 K/mm3 (4.4-11.0)
[2025-01-08 15:26] LABS: Bedside Glucose 134 mg/dL (74-106)
[2025-01-08 15:33] LABS: International Normalized Ratio 0.9; Prothrombin Time (Protime)PT. 12.8 SECONDS (11.7-14.9)
[2025-01-08 15:34] LABS: Partial Thromboplast Time 26.7 Seconds (24.1-36.2)
[2025-01-08 15:43] LABS: Anion Gap 4 (5-15); BUN 11 mg/dL (7-18); BUN/Creat Ratio 13.4 RATIO (10-20); Calcium,Total 8.9 mg/dL (8.5-10.1); Chloride 108 mmol/L (98-107); Creatinine, Serum 0.82 mg/dL (0.55-1.02); EST Glomerular Filtration Rate 77 mL/min (>60); Est Glom Filt Rate - Afr Amer 93 mL/min (>60); Estimated Creatinine Clearance 73.57 ml/min; Glucose 124 mg/dL (74-106); Potassium 3.4 mmol/L (3.5-5.1); Sodium Level 143 mmol/L (136-145); Troponin-I HS 4 pg/mL (3.0-54.0)
--- NOTE | 2025-01-08 17:24 | ED.RN ---
ACCEPTED AT [facility] @ [id number] CALLED PHYSICIANS AT 1658. ROSEANNA VILLAGRAN [phone]
--- NOTE | 2025-01-08 19:25 | ED.RN ---
CANCELED RIDE AND NOTIFIED [facility] ABOUT PT'S ADMIT WITH US
--- NOTE | 2025-01-08 19:37 | PCM.HP.STD ---
HPI - General General Date of Admission: 01/08/25 Date of Service: 01/08/25 Chief Complaint: Left hand discoloration and left face and left arm tingling HPI Narrative DERIK SIU, is a 54-year-old female with history of GERD presented [facility] ED 01/08/2025 with decreased sensation on left side of her face and left hand that began at 9:30 AM. Also felt that there was some purple discoloration of the left hand, symptoms constant since the onset. Patient stroke alert in triage and had stroke workup initiated. In ED patient afebrile with heart rate of 71 blood pressure of 141/90 with respiratory rate of 15 and pulse ox of 96% on room air. Lab workup only revealed a potassium of 3.[address]/CTA head and neck no acute process. Patient evaluated by teleneurology and recommended no TNK but that she would benefit from transfer for vascular evaluation due to discoloration of her hand. Initial plan was transfer however patient's change in color of her hand/fingers completely resolved and all of her stroke symptoms also completely resolved and patient expressed strong desire to stay at our institution for TIA workup if possible instead of being transferred so hospitalist contacted for discussion. Patient evaluated at bedside. Patient reports this morning she had an odd feeling in her left hand with no motor deficits and also felt an odd tingling feeling in her face and noticed that her fingers had a change in appearance on the left hand at the same time, symptoms almost completely resolved around 530, reported she still has possibly a little bit of residual left arm change in feeling however on exam she reported it felt the same on both sides. [facility] Medical History (Updated 01/08/25 @ 19:[address] Bethany Mcmanus MD) COPD (chronic obstructive pulmonary disease) Inflammatory bowel disease Home Medications ?Medication ?Instructions ?Recorded ?Last Taken ?Type ascorbic acid (vitamin C) 500 mg 500 mg PO DAILY 01/08/25 01/08/25 History tablet (C-500) cholecalciferol (vitamin D3) 125 125 mcg PO DAILY 01/08/25 01/08/25 History mcg (5,000 unit) tablet (Vitamin D3) loratadine 10 mg tablet 10 mg PO DAILY 01/08/25 01/08/25 History (Allerclear) omeprazole 40 mg capsule,delayed 40 mg PO DAILY 01/08/25 01/08/25 History release tiotropium bromide 18 mcg capsule 1 cap inhalation DAILY 01/08/25 01/08/25 History with inhalation device (Spiriva with HandiHaler) Allergy/AdvReac Type Severity Reaction Status Date / Time No Known Allergies Allergy Verified 01/08/25 15:02 Social History Smoking Status: Current every day smoker tobacco type: cigarettes ROS ROS Narrative General: Denies fever/chills HENT: Denies headache, denies stuffy nose, denies sore throat EYES: Denies changes in vision Resp: Denies cough, denies shortness of breath Cardiac: Denies chest pain GI: Denies abdominal pain, denies changes in bowel, denies nausea/vomiting : Denies changes in urination Extremity: Denies swelling MSK: Denies weakness Neuro: Some tingling feeling in left arm and left side of face Heme: Some purplish discoloration of left fingers Skin: Denies rashes Psychiatric: No complaints voiced Vital Signs Vital Signs Vital Signs: 01/08/25 15:06 01/08/25 15:10 01/08/25 15:25 Temperature 96.7 F L Temperature Source Temporal Pulse Rate 71 86 Respiratory Rate 15 15 Blood Pressure 141/90 H 141/90 H Blood Pressure Mean 107 107 Pulse Ox 96 99 Oxygen Delivery Method Room Air Room Air Room Air 01/08/25 15:28 01/08/25 15:49 01/08/25 16:01 Temperature Temperature Source Pulse Rate 70 70 69 Respiratory Rate 29 H 20 H 18 Blood Pressure 161/81 H 161/81 H 132/82 H Blood Pressure Mean 107 107 98 Pulse Ox 96 97 98 Oxygen Delivery Method Room Air Room Air Room Air 01/08/25 16:06 01/08/25 17:00 01/08/25 17:55 Temperature Temperature Source Pulse Rate 66 65 61 Respiratory Rate 14 19 H 18 Blood Pressure 113/82 H 132/74 H 108/87 H Blood Pressure Mean 92 93 94 Pulse Ox 99 94 96 Oxygen Delivery Method Room Air Room Air Room Air 01/08/25 18:01 01/08/25 18:49 01/08/25 19:28 Temperature 96.7 F L 97.3 F L Temperature Source Oral Pulse Rate 54 L 59 L 55 L Respiratory Rate 17 16 17 Blood Pressure 134/89 H 136/86 H 147/69 H Blood Pressure Mean 104 102 95 Pulse Ox 96 95 97 Oxygen Delivery Method Room Air Room Air Weight Weight: 71.7 kg Body Mass Index (BMI) 28.0 Physical Exam Narrative General: Alert, oriented, no apparent distress HEENT: Atraumatic, normocephalic Eyes: Anicteric, normal conjunctiva, extraocular movements intact, pupils equal Neck: Supple Respiratory: Clear to auscultation bilaterally, normal respiratory effort Cardiovascular: Regular rate and rhythm GI: Soft, nontender, nondistended Extremities: No edema, strong radial pulses equal on both sides, hands both warm and well-perfused Musculoskeletal: Strength 5 out of 5 in right upper extremity, 5 out of 5 left upper extremity, 5 out of 5 right lower extremity, 5 out of 5 left lower extremity Neuro: No overt focal neurological deficits, cranial nerves II through XII intact, [id number] without significant difficulty bilaterally Skin: No rashes appreciated, no discoloration of either hands, left hand changes completely resolved Psych: Cooperative Results Lab / Micro Data 01/08/25 15:18 01/08/25 15:18 Labs: Laboratory Results - last 24 hr 01/08/25 15:07: POC Glucose 134 H 01/08/25 15:18: WBC 9.8, RBC 4.17 L, Hgb 13.8, Hct 41.0, MCV 98.3, MCH 33.1 H, MCHC 33.7, RDW Std Deviation 46.8 H, RDW Coeff of Davey 13.0, Plt Count 326, MPV 10.2, Immature Gran % (Auto) 0.300, Neut % (Auto) 52.8, Lymph % (Auto) 34.6, [place] % (Auto) 10.4 H, Eos % (Auto) 1.2, Baso % (Auto) 0.7, Absolute Neuts (auto) 5.2, Absolute Lymphs (auto) 3.39, Nucleated RBC % 0, PT 12.8, INR 0.9, APTT 26.7, Sodium 143, Potassium 3.4 L, Chloride 108 H, Carbon Dioxide 31.0, Anion Gap 4 L, BUN 11, Creatinine 0.82, Estim Creat Clear Calc 73.57, Est GFR (MDRD) Af Amer 93, Est GFR (MDRD) Non-Af 77, BUN/Creatinine Ratio 13.4, Glucose 124 H, Calcium 8.9, Troponin I High Sens 4 Imaging Radiology Impression Brain CT 01/08/25 15:11 IMPRESSION: 1. No CT evidence of acute intracranial pathology. 2. Left maxillary sinusitis Findings communicated to Dr. Chan Patel on 01/08/25 at 1537 Reading [facility] Chest X-Ray 01/08/25 15:11 IMPRESSION: Mild cardiomegaly with no acute pulmonary disease Reading Location: [facility] Head/Neck CTA 01/08/25 15:20 IMPRESSION: No hemodynamically significant stenosis in the arteries of the head and neck. No large vessel occlusion. One or more dose reduction techniques were used (e.g., Automated exposure control, adjustment of the mA and/or kV according to patient size, use of iterative reconstruction technique). Reading Location: [facility] Assessment & Plan Assessment/Plan (1) Neurologic abnormality: PLAN: Plan # Left-sided decreased sensation -Admit to tele -CT head w/ no acute process -CTA head and neck no acute process -MRI ordered -NIH q4hr -asa, statin -Echo w/ bubble study -PT/OT/Speech eval -Teleneuro consult ordered -Hold BP medications to allow for permissive hypertension for 24 hours unless SBP greater than 220 or DBP greater than 120 or until stroke is ruled out # Transient left hand color changes -Possible that this brief atheroembolic in nature and symptoms have completely resolved, patient always had warmth in her hand and never lost pulses -Discussed with local vascular surgery and given complete resolution of symptoms patient to be treated with DAPT and statin with no acute surgical intervention necessary -Patient can follow-up with vascular on discharge -Will start DAPT and statin #Hypokalemia -Replace -Repeat in the AM #GERD -Continue PPI #Tobacco use -Advise cessation -Nicotine replacement available if desired #DVT ppx: SCDs Bethany Mcmanus MD Time spent in the patient's overall evaluation, decision-making process, review of diagnostic data, adjustment of management, discussion with other providers, nursing and ancillary staff involved in patient's care documentation, 58 Minutes Charges/Coding Visit Charges Inpatient E&M: 78416 Init Hosp L2
--- NOTE | 2025-01-08 19:58 | CM.ED ---
Social Work Reason for visit: stroke alert SW introduced self to patient and explained reason for visit: Patient stated that she was doing okay and that she was thankful her was able to be with her. Patient stated she did have some questions for her nurse or doctor. SW notified nurse of same. No further needs identified at this time. Daniela Umaña, COVER MACHINE OPERATOR, RAILROAD SHOP INSPECTOR
--- NOTE | 2025-01-08 20:54 | ECHOD_ITS ---
Reason For Study Reason For Study: TIA/STROKE Procedure This was a 2D Doppler, Color Flow transthoracic echocardiogram. Exam performed portable in patient room. Left Ventricle Normal size and thickness. The left ventricular ejection fraction is 65 %. Normal diastololic function. Right Ventricle Normal right ventricle. Atria The left and right atria are normal. Bubble study suggestive of tiny PFO. Mitral Valve Mild focal mitral valve calcification of the anterior leaflet. Trivial mitral valve insufficiency. Tricuspid Valve Trivial tricuspid valve insufficiency. Normal pulmonary artery pressure. Aortic Valve Trisinus/trileaflet aortic valve. Pulmonic Valve Trivial pulmonic valve insufficiency. Great Vessels Normal sized aortic root. Pericardium/Pleural No pericardial effusion. Medication Performed a rapid injection of agitated mix of 9 cc saline and 1cc air to assess for atrial septal defect. MMode/2D Measurements & Calculations LVIDd: 4.8 cm IVSd: 0.83 cm Ao root diam: 3.1 cm LVIDs: 3.1 cm LVPWd: 0.98 cm LA dimension: 3.6 cm RVDd: 2.7 cm FS: 35.8 % LAV(MOD-bp): 27.8 ml LVAd ap4: 23.4 cm2 SV(MOD-sp4): 42.8 ml LAV(MOD-bp) Indexed: 16.1 ml/m2 LVLd ap4: 7.5 cm SI(MOD-sp4): 24.8 ml/m2 LAV(MOD-sp2): 29.6 ml EDV(MOD-sp4): 61.7 ml LAV(MOD-sp4): 25.2 ml EDV(sp4-el): 62.3 ml LVAs ap4: 11.4 cm2 LVLs ap4: 5.9 cm ESV(MOD-sp4): 18.9 ml ESV(sp4-el): 18.8 ml EF(MOD-sp4): 69.4 % EF(sp4-el): 69.9 % SV(sp4-el): 43.5 ml LA A4 area: 12.3 cm2 LA dimension(2D): 2.4 cm RA A4 area: 10.1 cm2 TAPSE: 2.2 cm Time Measurements MV dec time: 0.22 sec Doppler Measurements & Calculations MV E max abimael: 85.5 cm/sec Lat Peak E' Abimael: 15.5 cm/sec Med Peak E' Abimael: 13.6 cm/sec MV A max abimael: 68.9 cm/sec E/E' lat: 5.5 E/E' med: 6.3 MV E/A: 1.2 Ao V2 max: 142.7 cm/sec LV V1 max: 114.2 cm/sec PA V2 max: 81.1 cm/sec Ao max P.1 mmHg LV V1 max P.2 mmHg TR max abimael: 265.6 cm/sec TR max P.2 mmHg ECHO/Echo Complete Interpretation Summary The left ventricular ejection fraction is 65 %. Mild focal mitral valve calcification of the anterior leaflet. Bubble study suggestive of tiny PFO. Ordering Physician: Bethany Mcmanus Referring Physician: Bethany Mcmanus Performed By: Jayla Smith RDCS
[2025-01-08] MEDS: Atorvastatin Calcium 80 MG Tablet PO (21:34)
[2025-01-08] MEDS: Potassium Chloride Oral Tablet 20 MEQ 40 MEQ PO (21:34)
[2025-01-08] MEDS: Aspirin 325 MG Tablet PO (21:34)
[2025-01-08] MEDS: 0.9% Normal Saline (1000mL) 1,000 ML 50 ML IV (21:38)
[2025-01-08] MEDS: 0.9% Saline Lock 10 ML Syringe IV (21:40)
[2025-01-09] VITALS (8 sets, daily range): BP systolic 109–128; BP diastolic 55–67; PULSE 55–63; RESP 14–20; TEMP 36.3–36.7; O2SAT 95–98; BMI 28.0
[2025-01-09 06:17] LABS: Absolute Lymphocyte Count 2.99 X10^3/uL (0.83-4.51); Absolute Neutrophil Count 3.5 X10^3/uL (2.0-7.7); Basophil# 0.07 X10^3/uL; Basophil% 0.9 % (0-1); Eosinophil# 0.16 X10^3/uL; Eosinophils% 2.1 % (0-5); Hematocrit 39.4 % (37-47); Hemoglobin 13.1 g/dL (12.0-15.0); Lymphocyte # 2.99 X10^3/ul (0.83-4.51); Lymphocyte % 39.2 % (19-41); Mean Corp Hgb Conc 33.2 g/dL (32-36); Mean Corpuscular Volume 99.2 fL (81-99); Mean Platelet Vol. 10.9 fl (6.2-12.0); Monocyte# 0.87 X10^3/uL; Monocyte% 11.4 % (0-10); NRBC Flagged by Analyzer 0 % (0-5); Neutrophil # 3.51 X10^3/uL (2.7-7.7); Platelet Count 295 K/mm3 (150-450); RBC Distribution Width SD 47.3 fl (35.1-43.9); Red Blood Count 3.97 M/mm3 (4.2-5.4); White Blood Count 7.6 K/mm3 (4.4-11.0)
[2025-01-09] MEDS: Ipratropium 0.5 MG/2.5 ML SOLUTION INHALATION ×2 (06:56→13:27)
[2025-01-09 06:57] LABS: Anion Gap 5 (5-15); BUN 12 mg/dL (7-18); BUN/Creat Ratio 16.5 RATIO (10-20); Calcium,Total 8.8 mg/dL (8.5-10.1); Chloride 111 mmol/L (98-107); Cholesterol 175 mg/dL (200); Creatinine, Serum 0.73 mg/dL (0.55-1.02); EST Glomerular Filtration Rate 88 mL/min (>60); Est Glom Filt Rate - Afr Amer 107 mL/min (>60); Estimated Creatinine Clearance 79.48 ml/min; Glucose 102 mg/dL (74-106); High Density Lipoprotein 62 mg/dL; Potassium 4.2 mmol/L (3.5-5.1); Sodium Level 144 mmol/L (136-145); Triglycerides 92 mg/dL; Very Low Density Lipoprotein 18 mg/dL (5-40)
[2025-01-09] MEDS: Acetaminophen 325 MG Tablet 650 MG PO (07:57)
[2025-01-09] MEDS: Aspirin 81 MG TAB.CHEW PO (07:58)
[2025-01-09] MEDS: Loratadine 10 MG Tablet PO (07:59)
[2025-01-09] MEDS: Pantoprazole Sodium 40 MG Tablet PO (07:59)
[2025-01-09] MEDS: Clopidogrel Bisulfate 75 MG Tablet PO (07:59)
[2025-01-09 08:37] LABS: Hemoglobin A1c 5.5 % (3.8-5.6)
--- NOTE | 2025-01-09 10:23 | NURSING ---
Off floor to MRI
--- NOTE | 2025-01-09 10:49 | NURSING ---
pt feels mild numbness/tingling to L fingertips, skin is cool to touch.
--- NOTE | 2025-01-09 13:25 | STROKE.PNOTE ---
Objective Data Objective Data Vital Signs: Vital Signs Temp Pulse Resp BP Pulse Ox O2 Del Method 98.0 F 55 L 16 128/67 H 96 Room Air 01/09/25 12:00 01/09/25 12:00 01/09/25 12:00 01/09/25 12:00 01/09/25 12:00 01/09/25 12:00 Oxygen Delivery Method Room Air Weight: 69.4 kg Body Mass Index (BMI) 28.0 Intake & Output: Intake and Output for Last 24 Hours 01/07/25 01/08/25 01/09/25 23:59 23:59 23:59 Intake Total 240 / 240 Balance 240 / 240 Lab / Micro Data 01/09/25 05:21 01/09/25 05:21 Labs: Laboratory Results - last 24 hr 01/08/25 15:07: POC Glucose 134 H 01/08/25 15:18: WBC 9.8, RBC 4.17 L, Hgb 13.8, Hct 41.0, MCV 98.3, MCH 33.1 H, MCHC 33.7, RDW Std Deviation 46.8 H, RDW Coeff of Davey 13.0, Plt Count 326, MPV 10.2, Immature Gran % (Auto) 0.300, Neut % (Auto) 52.8, Lymph % (Auto) 34.6, Beaver % (Auto) 10.4 H, Eos % (Auto) 1.2, Baso % (Auto) 0.7, Absolute Neuts (auto) 5.2, Absolute Lymphs (auto) 3.39, Nucleated RBC % 0, PT 12.8, INR 0.9, APTT 26.7, Sodium 143, Potassium 3.4 L, Chloride 108 H, Carbon Dioxide 31.0, Anion Gap 4 L, BUN 11, Creatinine 0.82, Estim Creat Clear Calc 73.57, Est GFR (MDRD) Af Amer 93, Est GFR (MDRD) Non-Af 77, BUN/Creatinine Ratio 13.4, Glucose 124 H, Calcium 8.9, Troponin I High Sens 4 01/09/25 05:21: WBC 7.6, RBC 3.97 L, Hgb 13.1, Hct 39.4, MCV 99.2 H, MCH 33.0 H, MCHC 33.2, RDW Std Deviation 47.3 H, RDW Coeff of Davey 13.0, Plt Count 295, MPV 10.9, Immature Gran % (Auto) 0.400, Neut % (Auto) 46.0 L, Lymph % (Auto) 39.2, Beaver % (Auto) 11.4 H, Eos % (Auto) 2.1, Baso % (Auto) 0.9, Absolute Neuts (auto) 3.5, Absolute Lymphs (auto) 2.99, Nucleated RBC % 0, Sodium 144, Potassium 4.2, Chloride 111 H, Carbon Dioxide 28.0, Anion Gap 5, BUN 12, Creatinine 0.73, Estim Creat Clear Calc 79.48, Est GFR (MDRD) Af Amer 107, Est GFR (MDRD) Non-Af 88, BUN/Creatinine Ratio 16.5, Glucose 102, Hemoglobin A1c 5.5, Calcium 8.8, Triglycerides 92, Cholesterol 175, LDL Cholesterol 95, VLDL Cholesterol 18, HDL Cholesterol 62, TSH 6.080 H Radiography Diagnostic Testing: Radiology Impression Brain CT 01/08/25 15:[address]: [address] evidence of acute intracranial pathology. 2. Left maxillary sinusitis Findings communicated to Dr. Chan Patel on 01/08/25 at 1537 Reading Location: [facility] Chest X-Ray 01/08/25 15:11 IMPRESSION: Mild cardiomegaly with no acute pulmonary disease Reading [facility] Head/Neck CTA 01/08/25 15:20 IMPRESSION: No hemodynamically significant stenosis in the arteries of the head and neck. No large vessel occlusion. One or more dose reduction techniques were used (e.g., Automated exposure control, adjustment of the mA and/or kV according to patient size, use of iterative reconstruction technique). Reading Location: [facility] Brain MRI 01/09/25 19:50 IMPRESSION: No acute intracranial abnormality. No significant focal white matter lesions. [id number] partial opacification left maxillary sinus. There is prominence of the adenoids, which may be reactive. Suggest correlation with direct inspection. Reading Location: [facility] Physical Exam Neuro Neuro Narrative: Neurological examination: General: The patient appears nutritionally appropriate, well-groomed, and appears comfortable in no acute distress. Mental Status: The patient?s mental status was normal including orientation. Language was intact. Cranial nerves: Visual lorenz full, extra-ocular motion was intact. Face motion symmetric. Bilateral shoulder shrug was intact. Tongue was midline with normal movement. There was no dysarthria. Motor: Normal strength in all four extremities. No pronator drift. Sensation: Intact light touch bilaterally, she reports tingling (subjective) in thumb and fingers palmar surface only up to the proximal joint. Coordination: Bilateral finger to nose was normal. There was no dysmetria. Gait: deferred Subject: Neurology Subjective She reports left face/hand numbness resolved at 630a today but now the left hand numbness has returned and involved fingers and thumb palmar aspect only (does not involve dorsum of hand). She reports she can feel things but its mostly a tingling like its asleep. No TAYLOR Assessment and Plan: Stroke Assessment/Plan DERIK SIU is a 54 year old right-handed female with history of COPD and GERD who on 01/08/25 at 930a developed left face/hand tingling. She presented to [place] [facility] where telestroke NIHSS was 1. CT brain negative. CTA head/neck negative. She was admitted. MRI brain DWI negative. LDL 95, HGbA1c 5.5. She is on Asa/plavix/lipitor. Neurological examination shows nonfocal exam, NIHSS-0. ASSESSMENT/PLAN: Numbness 1) Stroke ruled out with negative MRI brain in the setting of persistent left finger tingling. Other possibility includes peripheral nerve vs nonspecific. Recommend D/C'ing stroke meds (Asa/plavix/lipitor). 2) DC home with outpatient neurology clinic follow-up
--- NOTE | 2025-01-09 13:39 | CON.PCM.NE_ITS ---
Assessment and Plan: Stroke Assessment/Plan error HPI Consult Data Date of Consult: 01/09/25 HPI Narrative HPI Narrative: DERIK SIU, is a 54 F who presents [facility], [facility] Medical History (Updated 01/08/25 @ 19:[address] Bethany Mcmanus MD) Inflammatory bowel disease COPD (chronic obstructive pulmonary disease) Home Medications ?Medication ?Instructions ?Recorded ?Last Taken ?Type ascorbic acid (vitamin C) 500 mg 500 mg PO DAILY 01/0801/08/25 History tablet (C-500) cholecalciferol (vitamin D3) 125 125 mcg PO DAILY 12/2201/08/25 History mcg (5,000 unit) tablet (Vitamin D3) loratadine 10 mg tablet 10 mg PO DAILY 01/08/2512/22 History (Allerclear) omeprazole 40 mg capsule,delayed 40 mg PO DAILY 01/08/25 History release tiotropium bromide 18 mcg capsule 1 cap inhalation NILSON LY 01/08/25 01/08/25 History with inhalation device (Spiriva with HandiHaler) Allergy/AdvReac Type Severity Reaction Status Date / Time No Known Allergies Allergy Verified 01/08/25 15:02 Social History Smoking Status: Current every day smoker tobacco type: cigarettes Vital Signs Vital Signs Vital Signs: 01/08/25 15:06 01/08/25 15:10 01/08/25 15:25 Temperature 96.7 F L Temperature Source Temporal Pulse Rate 71 86 Pulse Strength Respiratory Rate 15 15 Respiratory Effort Respiratory Depth Respiratory Pattern Blood Pressure 141/90 H 141/90 H Blood Pressure Mean 107 107 Blood Pressure Source Blood Pressure Position Blood Pressure Location Pulse Ox 96 99 Oxygen Delivery Method Room Air Room Air Room Air 01/08/25 15:28 01/08/25 15:49 01/08/25 16:01 Temperature Temperature Source Pulse Rate 70 70 69 Pulse Strength Respiratory Rate 29 H 20 H 18 Respiratory Effort Respiratory Depth Respiratory Pattern Blood Pressure 161/81 H 161/81 H 132/82 H Blood Pressure Mean 107 107 98 Blood Pressure Source Blood Pressure Position Blood Pressure Location Pulse Ox 96 97 98 Oxygen Delivery Method Room Air Room Air Room Air 01/08/25 16:06 01/08/25 17:00 01/08/25 17:55 Temperature Temperature Source Pulse Rate 66 65 61 Pulse Strength Respiratory Rate 14 19 H 18 Respiratory Effort Respiratory Depth Respiratory Pattern Blood Pressure 113/82 H 132/74 H 108/87 H Blood Pressure Mean 92 93 94 Blood Pressure Source Blood Pressure Position Blood Pressure Location Pulse Ox 99 94 96 Oxygen Delivery Method Room Air Room Air Room Air 01/08/25 18:01 01/08/25 18:49 01/08/25 19:28 Temperature 96.7 F L 97.3 F L Temperature Source Oral Pulse Rate 54 L 59 L 55 L Pulse Strength Respiratory Rate 17 16 17 Respiratory Effort Respiratory Depth Respiratory Pattern Blood Pressure 134/89 H 136/86 H 147/69 H Blood Pressure Mean 104 102 95 Blood Pressure Source Blood Pressure Position Blood Pressure Location Pulse Ox 96 95 97 Oxygen Delivery Method Room Air Room Air 01/08/25 20:00 01/08/25 20:00 01/08/25 21:22 Temperature 98.0 F Temperature Source Oral Pulse Rate 51 L 51 L 55 L Pulse Strength Respiratory Rate 18 18 18 Respiratory Effort Respiratory Depth Respiratory Pattern Blood Pressure 128/88 H 128/88 H 164/82 H Blood Pressure Mean 101 101 109 Blood Pressure Source Monitor Blood Pressure Position Semi-Fowlers Blood Pressure Location Pulse Ox 96 96 97 Oxygen Delivery Method Room Air Room Air Room Air 01/08/25 21:35 01/08/25 21:40 01/09/25 01:35 Temperature 97.7 F L Temperature Source Temporal Pulse Rate 58 L Pulse Strength Normal (2+) Respiratory Rate 18 Respiratory Effort Normal Non-Labored Respiratory Depth Normal Respiratory Pattern Normal Blood Pressure 113/64 Blood Pressure Mean 80 Blood Pressure Source Monitor Blood Pressure Position Semi-Fowlers Blood Pressure Location Left Arm Pulse Ox 98 Oxygen Delivery Method Room Air Room Air 01/09/25 01:38 01/09/25 01:45 01/09/25 05:34 Temperature 97.7 F L Temperature Source Temporal Pulse Rate 55 L Pulse Strength Respiratory Rate 18 Respiratory Effort Normal Non-Labored Respiratory Depth Normal Respiratory Pattern Normal Blood Pressure 127/67 H Blood Pressure Mean 87 Blood Pressure Source Monitor Blood Pressure Position Semi-Fowlers Blood Pressure Location Left Arm Pulse Ox 97 97 97 Oxygen Delivery Method Room Air Room Air Room Air 01/09/25 06:56 01/09/25 06:56 01/09/25 07:56 Temperature 97.3 F L Temperature Source Temporal Pulse Rate 57 L 63 Pulse Strength Respiratory Rate 16 14 Respiratory Effort Respiratory Depth Respiratory Pattern Normal Blood Pressure 109/55 L Blood Pressure Mean 73 Blood Pressure Source Monitor Blood Pressure Position Sitting Blood Pressure Location Left Arm Pulse Ox 96 95 Oxygen Delivery Method Room Air Room Air 01/09/25 08:56 01/09/25 12:00 Temperature 98.0 F Temperature Source Oral Pulse Rate 55 L Pulse Strength Respiratory Rate 16 Respiratory Effort Respiratory Depth Respiratory Pattern Blood Pressure 128/67 H Blood Pressure Mean 87 Blood Pressure Source Monitor Blood Pressure Position Sitting Blood Pressure Location Left Arm Pulse Ox 96 Oxygen Delivery Method Room Air Room Air Weight Weight: 69.4 kg Body Mass Index (BMI) 28.0 EEG Results Procedure Details EEG Procedure Details: DERIK SIU is a 54 year old F with a past medical history of , who presents for evaluation of Electroencephalogram on DATE at TIME NIHSS NIHSS Nursing Documentation NIHSS Nursing Documentation: NIHSS: Ischemic Stroke/TIA Start: 01/08/25 20:54 Text: For PCU Patients: NIH and Neuro Check every 4 Status: Active hours, PRN and with change in RN caregiver. Freq: 1200 Protocol: Activity Type Activity Date Activity User E-sign Co-sign Detail Recorded Client Recorded Date Recorded By Document 01/09/25 12:00 [id number] 01/09/25 13:08 NB 01/09/25 12:00 NIH Stroke Scale [NIHSS] A score of 0 is normal or asymptomatic . Total possible score is 42. Inpatient: RN or Physician to activate a stroke alert for onset of new stroke symptoms or with NIHSS increase >/= 3 points. Following change in neurological status, NIHSS will be performed per physician order or more frequently PRN. -1a. Level of Consciousness Alert; keenly responsive -1b. LOC Questions Answers BOTH questions correctly. -1c. LOC Commands Performs both tasks correctly . -2. Best Gaze Normal -3. Visual No visual loss -4. Facial Palsy Normal symmetrical movements -5a. Left Arm No drift; arm holds 90 (or 45 ) degrees for full 10 seconds -5b. Right Arm No drift; arm holds 90 (or 45 ) degrees for full 10 seconds -6a. Left Leg No drift; leg holds 30-degree position for full 5 seconds -6b. Right Leg No drift; leg holds 30-degree position for full 5 seconds -7. Limb Ataxia Absent -8. Sensory Normal; no sensory loss -9. Best Language No aphasia; normal -10. Dysarthria Normal -11. Extinction and Inattention No abnormality -Total 0 Query Text:A score of 0 is normal or asymptomatic. Total possible score is 42 . ED: Notify Physician for NIHSS increase by > / = 3 points. Inpatient: RN or Physician to activate a stroke alert for NIHSS increase of > / = 3 points. Coma Scale [Assess] -Eye Opening Spontaneous -Motor Obeys Commands -Verbal Oriented [Total] -Coma Scale Total 15 Lab / Micro Data 01/09/25 05:21 01/09/25 05:21 Labs: Laboratory Results - last 24 hr 01/08/25 15:07: POC Glucose 134 H 01/08/25 15:18: WBC 9.8, RBC 4.17 L, Hgb 13.8, Hct 41.0, MCV 98.3, MCH 33.1 H, MCHC 33.7, RDW Std Deviation 46.8 H, RDW Coeff of Davey 13.0, Plt Count 326, MPV 10.2, Immature Gran % (Auto) 0.300, Neut % (Auto) 52.8, Lymph % (Auto) 34.6, M rocio % (Auto) 10.4 H, Eos % (Auto) 1.2, Baso % (Auto) 0.7, Absolute Neuts (auto) 5.2, Absolute Lymphs (auto) 3.39, Nucleated RBC % 0, PT 12.8, INR 0.9, APTT 26.7, Sodium 143, Potassium 3.4 L, Chloride 108 H, Carbon Dioxide 31.0, Anion Gap 4 L, BUN 11, Creatinine 0.82, Estim Creat Clear Calc 73.57, Est GFR (MDRD) Af Amer 93, Est GFR (MDRD) Non-Af 77, BUN/Creatinine Ratio 13.4, Glucose 124 H, Calcium 8.9, Troponin I High Sens 4 01/09/25 05:21: WBC 7.6, RBC 3.97 L, Hgb 13.1, Hct 39.4, MCV 99.2 H, MCH 33.0 H, MCHC 33.2, RDW Std Deviation 47.3 H, RDW Coeff of Davey 13.0, Plt Count 295, MPV 10.9, Immature Gran % (Auto) 0.400, Neut % (Auto) 46.0 L, Lymph % (Auto) 39.2, M rocio % (Auto) 11.4 H, Eos % (Auto) 2.1, Baso % (Auto) 0.9, Absolute Neuts (auto) 3.5, Absolute Lymphs (auto) 2.99, Nucleated RBC % 0, Sodium 144, Potassium 4.2, Chloride 111 H, Carbon Dioxide 28.0, Anion Gap 5, BUN 12, Creatinine 0.73, Estim Creat Clear Calc 79.48, Est GFR (MDRD) Af Amer 107, Est GFR (MDRD) Non-Af 88, BUN/Creatinine Ratio 16.5, Glucose 102, Hemoglobin A1c 5.5, Calcium 8.8, Triglycerides 92, Cholesterol 175, LDL Cholesterol 95, VLDL Cholesterol 18, HDL Cholesterol 62, TSH 6.080 H Imaging Radiology Impression Brain CT 01/08/25 15:11 IMPRESSION: 1. No CT evidence of acute intracranial pathology. 2. Left maxillary sinusitis Findings communicated to Dr. Chan Patel on 01/08/25 at 1537 Reading [facility] Chest X-Ray 01/08/25 15:11 IMPRESSION: Mild cardiomegaly with no acute pulmonary disease Reading [facility] Head/Neck CTA 01/08/25 15:20 IMPRESSION: No hemodynamically significant stenosis in the arteries of the head and neck. No large vessel occlusion. One or more dose reduction techniques were used (e.g., Automated exposure control, adjustment of the mA and/or kV according to patient size, use of iterative reconstruction technique). Reading [facility] Brain MRI 01/09/25 19:50 IMPRESSION: No acute intracranial abnormality. No significant focal white matter lesions. [id number] partial opacification left maxillary sinus. There is prominence of the adenoids, which may be reactive. Suggest correlation with direct inspection. [facility] Active Medications Active Medications Active Medications: Current Medications Generic Name Dose Route Start Last Admin Trade Name Freq PRN Reason Stop Dose Admin Acetaminophen 650 mg 01/08/25 20:54 01/09/25 07:57 Acetaminophen 325 Mg Tablet PO 650 mg Q6H PRN PRN Administration Pain 1-10 Or Fever >100.7 Albuterol Sulfate 2.5 mg 01/08/25 20:54 Albuterol 2.5 Mg/3 Ml Vial.Neb. INHALATION Q2H PRN PRN SOB &/OR WHEEZING Aspirin 81 mg 01/09/25 08:00 01/09/25 07:58 Aspirin 81 Mg Tab.Chew PO 81 mg BREAKFAST CELESTE Administration Atorvastatin Calcium 80 mg 01/08/25 22:00 01/08/25 21:34 Atorvastatin Calcium 80 Mg Tablet PO 80 mg QHS CELESTE Administration Clopidogrel Bisulfate 75 mg 01/09/25 10:00 01/09/25 07:59 Clopidogrel Bisulfate 75 Mg Tablet PO 75 mg DAILY CELESTE Administration Hydralazine HCl 5 mg 01/08/25 20:54 Hydralazine 20 Mg/Ml Vial IV 01/09/25 20:54 Q30M PRN maintain BP parameters with HR <60 Sodium Chloride 1,000 mls @ 50 mls/hr 01/08/25 20:54 01/08/25 21:38 IV 01/09/25 16:53 50 mls/hr .Q20H CELESTE Administration Protocol Sodium Chloride 100 mls @ 15 mls/hr 01/08/25 21:02 IV .Q6H40M PRN Saline Flush Sodium Chloride 100 mls @ 15 mls/hr 01/08/25 21:02 IV .Q6H40M PRN Additional IVPB Infusion Ipratropium [place] 0.5 mg 01/08/25 21:00 01/09/25 13:27 Ipratropium 0.5 Mg/2.5 Ml Solution INHALATION 0.5 mg Q6HWA.RT CELESTE Administration Labetalol HCl 20 mg 01/08/25 15:11 Labetalol 20mg/4ml Syringe IV 01/09/25 15:11 X1 PRN Blood Pressure Labetalol HCl 10 - 20 mg 01/08/25 20:54 Labetalol 20mg/4ml Syringe IV 01/09/25 20:54 Q10M PRN PRN maintain BP parameters with HR >/=60 Loratadine 10 mg 01/09/25 10:00 01/09/25 07:59 Loratadine 10 Mg Tablet PO 10 mg DAILY CELESTE Administration Melatonin 3 mg 01/08/25 20:54 Melatonin 3 Mg Tablet PO QHS PRN PRN INSOMNIA Nicotine 21 mg 01/09/25 10:00 01/09/25 07:59 Nicotine 21 Mg Patch TD 21 mg DAILY CELESTE Administration Ondansetron HCl 4 mg 01/08/25 20:54 Ondansetron 4 Mg/2 Ml Vial IV Q8H PRN PRN NAUSEA/VOMITING Pantoprazole Sodium 40 mg 01/09/25 10:00 01/09/25 07:59 Pantoprazole Sodium 40 Mg Tablet PO 40 mg DAILY CELESTE Administration Senna/Docusate Sodium 2 tablet 01/08/25 20:54 Senna/Docusate Sodium 1 Tablet PO BID PRN PRN Constipation Sodium Chloride 10 - 40 ml 01/08/25 21:02 01/08/25 21:40 0.9% Saline Lock 10 Ml Syringe IV 10 ml UD PRN Administration SALINE FLUSH
--- NOTE | 2025-01-09 13:47 | CASEMGMT ---
SW did not complete a PHQ 9 as patient did not have a Stroke. Nupur LOVE
--- NOTE | 2025-01-09 14:29 | PCM.DC ---
Discharge Instructions Diet Discharge Diet: No restrictions DC O2, CPAP, BIPAP needs Home O2 Discharge instructions: No Dressing / Incision Discharge Activity: No Restrictions Follow Up Care Test Results: Test results from this visit will be discussed in further detail at your follow-up appointment, if applicable. Discharge Plan Admission Admit Date/Time: 01/08/25 19:37 Primary Reason for Your Visit: strokelike symptoms Attending Provider: Damon Nance Primary Care Provider: Dwayne Roth Consulting Providers: Bethany Mcmanus; Serge Marie; Gloria Luna; Karina Russo; Madiha Chaudhary; Lilly Lozano; Tor Subramanian; Cynthia Gu; Jaspal Villalobos; Solo Mcclain; Madi Beckman; Jodee Guzman; Jay Roblero; Mirian Doshi; Alec Onofre; Ricky James; Apollo Arshad; Jones Stacy; Arturo Santana; Maryann Varghese; Blake Johnson Instructions Additional Instructions / Restrictions: Continue home medications as normal. Follow-up with neurology in the office as needed. Discharge Orders/Prescriptions Prescriptions: Continued omeprazole 40 mg capsule,delayed release(DR/EC) 40 mg PO DAILY cholecalciferol (vitamin D3) [Vitamin D3] 125 mcg (5,000 unit) tablet 125 mcg PO DAILY tiotropium bromide [Spiriva with HandiHaler] 18 mcg capsule, w/inhalation device 1 cap inhalation DAILY loratadine [Allerclear] 10 mg tablet 10 mg PO DAILY ascorbic acid (vitamin C) [C-500] 500 mg tablet 500 mg PO DAILY Referrals / Follow Up: Dwayne Roth MD [Primary Care Provider] - Disposition Disposition (needs filled in before D/C Order can be placed): Home, Self Care
--- NOTE | 2025-01-09 14:30 | DS.PCM_ITS ---
Providers Date of Admission: 01/08/25 Date of Discharge: 01/09/25 Primary Care Physician: Dr. Dwayne Roth MD Consultations 01/08/25 20:54 Consult: Tele-Neurology Routine Consulting Provider: [facility] Reason for Consult: Acute Ischemic Stroke/TIA EMERGENT Consult: No MD Notified: Yes Date Notified: 01/08/25 Time Notified: 21:39 Method of Notification: Answering Service Comments:: cancel per Dr. Maryann Varghese, neuro signing off Nursing Unit Staff Notify [facility] of Tele-Neurology Consult: Yes Reason For Visit: TIA R/O Diagnosis Discharge Diagnosis (1) Neurologic abnormality: Status: Acute Code(s): R29.818 - Other symptoms and signs involving the nervous system Medications at Discharge Home Medications ascorbic acid (vitamin C) 500 mg tablet (C-500) 500 mg PO DAILY 01/08/25 cholecalciferol (vitamin D3) 125 mcg (5,000 unit) tablet (Vitamin D3) 125 mcg PO DAILY 01/08/25 loratadine 10 mg tablet (Allerclear) 10 mg PO DAILY 01/08/25 omeprazole 40 mg capsule,delayed release 40 mg PO DAILY 01/08/25 tiotropium bromide 18 mcg capsule with inhalation device (Spiriva with HandiHaler) 1 cap inhalation DAILY 01/08/25 Hospital Course Operations None Procedures EKG, Transthoracic echo and - (Chest x-ray, CT brain, CTA head/neck, MRI brain) Summary of Care Provided Minutes Spent on Discharge: 35 Hospital Course: Patient is a 54-year-old female who presented with dyspnea as well ED on 01/08/2025 with strokelike symptoms. Short hospital course as noted below. Patient discharged home in stable condition on 01/09. 1. Left-sided decreased sensation with transient left hand color changes, CVA ruled out ? Neurology followed. CT brain, CTA head/neck and MRI brain were unremarkable so CVA was ruled out. LDL 95, A1c 5.5%. Per neurology, possibility that left arm findings could be related to peripheral nerve disease such as carpal tunnel syndrome but could otherwise be nonspecific. No need for aspirin, Plavix or Lipitor on discharge. Okay for discharge home with outpatient neurology follow- up as needed. 2. Hypokalemia ? Potassium 3.4 on admit, repleted with improvement. 3. GERD ? Continue home PPI. 4. Tobacco use ? Nicotine patch worn while inpatient per patient request. Discussed cessation on discharge. Total clinical time spent by myself addressing the patient's medical issues, reviewing all the data, and collaborating with patient's care team: 35 minutes. Physical Exam Const alert, oriented x3, no apparent distress and average body habitus Constitutional Narrative: Pleasant middle-age female, sitting up comfortably in bed, conversing normally, in no acute distress. General Appearance: cooperative and comfortable HEENT normocephalic, head/scalp atraumatic, hearing grossly normal bilaterally, nasal mucous membranes and turbinates normal and moist oral mucous membranes Eyes PERRL, EOMs intact bilaterally and conjunctivae normal Neck full ROM Chest inspection of chest normal Resp normal respiratory effort, normal air movement, no use of accessory muscles and clear to auscultation bilaterally Cardio regular rate, regular rhythm, no murmurs and peripheral pulses 2+ throughout GI normal to inspection, nondistended, normoactive bowel sounds, soft to palpation, non-tender and non-distended Back/Spine normal ROM Extremity normal to inspection, full ROM and no pedal edema Skin no rashes or lesions noted Neuro moves all extremities and no focal motor deficits Speech: speech normal Motor Exam: strength 5/5 throughout Psych mental status grossly normal Weight / BMI Weight Weight: 69.4 kg Body Mass Index (BMI) 28.0 ABG / Lab / Microbiology Data 01/09/25 05:21 01/09/25 05:21 Laboratory: Laboratory Results - last 24 hr 01/08/25 15:07: POC Glucose 134 H 01/08/25 15:18: WBC 9.8, RBC 4.17 L, Hgb 13.8, Hct 41.0, MCV 98.3, MCH 33.1 H, MCHC 33.7, RDW Std Deviation 46.8 H, RDW Coeff of Davey 13.0, Plt Count 326, MPV 10.2, Immature Gran % (Auto) 0.300, Neut % (Auto) 52.8, Lymph % (Auto) 34.6, M rocio % (Auto) 10.4 H, Eos % (Auto) 1.2, Baso % (Auto) 0.7, Absolute Neuts (auto) 5.2, Absolute Lymphs (auto) 3.39, Nucleated RBC % 0, PT 12.8, INR 0.9, APTT 26.7, Sodium 143, Potassium 3.4 L, Chloride 108 H, Carbon Dioxide 31.0, Anion Gap 4 L, BUN 11, Creatinine 0.82, Estim Creat Clear Calc 73.57, Est GFR (MDRD) Af Amer 93, Est GFR (MDRD) Non-Af 77, BUN/Creatinine Ratio 13.4, Glucose 124 H, Calcium 8.9, Troponin I High Sens 4 01/09/25 05:21: WBC 7.6, RBC 3.97 L, Hgb 13.1, Hct 39.4, MCV 99.2 H, MCH 33.0 H, MCHC 33.2, RDW Std Deviation 47.3 H, RDW Coeff of Davey 13.0, Plt Count 295, MPV 10.9, Immature Gran % (Auto) 0.400, Neut % (Auto) 46.0 L, Lymph % (Auto) 39.2, M rocio % (Auto) 11.4 H, Eos % (Auto) 2.1, Baso % (Auto) 0.9, Absolute Neuts (auto) 3.5, Absolute Lymphs (auto) 2.99, Nucleated RBC % 0, Sodium 144, Potassium 4.2, Chloride 111 H, Carbon Dioxide 28.0, Anion Gap 5, BUN 12, Creatinine 0.73, Estim Creat Clear Calc 79.48, Est GFR (MDRD) Af Amer 107, Est GFR (MDRD) Non-Af 88, BUN/Creatinine Ratio 16.5, Glucose 102, Hemoglobin A1c 5.5, Calcium 8.8, Triglycerides 92, Cholesterol 175, LDL Cholesterol 95, VLDL Cholesterol 18, HDL Cholesterol 62, TSH 6.080 H Radiography Diagnostic Testing: Radiology Impression Brain CT 01/08/25 15:11 IMPRESSION: 1. No CT evidence of acute intracranial pathology. 2. Left maxillary sinusitis Findings communicated to Dr. Chan Patel on 01/08/25 at 1537 Reading Location: [facility] Chest X-Ray 01/08/25 15:11 IMPRESSION: Mild cardiomegaly with no acute pulmonary disease Reading Location: [facility] Head/Neck CTA 01/08/25 15:20 IMPRESSION: No hemodynamically significant stenosis in the arteries of the head and neck. No large vessel occlusion. One or more dose reduction techniques were used (e.g., Automated exposure control, adjustment of the mA and/or kV according to patient size, use of iterative reconstruction technique). Reading Location: [facility] Echocardiogram 01/08/25 20:54 Interpretation Summary The left ventricular ejection fraction is 65 %. Mild focal mitral valve calcification of the anterior leaflet. Bubble study suggestive of tiny PFO. Ordering Physician: Bethany Mcmanus Referring Physician: Bethany Mcmanus Performed By: Jayla Smith RDCS Brain MRI 01/09/25 19:50 IMPRESSION: No acute intracranial abnormality. No significant focal white matter lesions. [id number] partial opacification left maxillary sinus. There is prominence of the adenoids, which may be reactive. Suggest correlation with direct inspection. Reading Location: [facility] D/C Instructions DC O2, CPAP, BIPAP Needs Home O2 Discharge instructions: No Meaningful Use Info Meaningful Use Meaningful Use Diagnoses (Choose all that apply): None applicable Ischemic Stroke Statin Dosing Therapy Reference: STATIN DOSE THERAPY REFERENCE: * Patients > 75 years receive moderate or high dose statin therapy. * Patients 75 years or YOUNGER should receive HIGH intensity statin dose unless contraindicated. You will be required to document reason for non-treatment if statin daily dose does not meet guidelines. HIGH DOSE STATIN THERAPY DAILY Atorvastatin > than or = to 40 mg Rosuvastatin > than or = to 20 mg Amlodipine + Atorvastatin > than or = to 2.5/40 mg Ezetimibe + Simvastatin 10/80 mg Simvastatin 80mg Discharge Plan Admission Admit Date/Time: 01/08/25 19:37 Primary Reason for Your Visit: strokelike symptoms Attending Provider: Damon Nance Primary Care Provider: Dwayne Roth Consulting Providers: Bethany Mcmanus; Serge Marie; Gloria Luna; Karina Russo; Madiha Chaudhary; Lilly Lozano; Tor Subramanian; Cynthia Gu; Jaspal Villalobos; Solo Mcclain; Madi Beckman; Jodee Guzman; Jay Roblero; Mirian Doshi; Alec Onofre; Ricky James; Apollo Arshad; Jones Stacy; Arturo Santana; Maryann Varghese; Blake Johnson Instructions Additional Instructions / Restrictions: Continue home medications as normal. Follow-up with neurology in the office as needed. Discharge Orders/Prescriptions Prescriptions: Continued omeprazole 40 mg capsule,delayed release(DR/EC) 40 mg PO DAILY cholecalciferol (vitamin D3) [Vitamin D3] 125 mcg (5,000 unit) tablet 125 mcg PO DAILY tiotropium bromide [Spiriva with HandiHaler] 18 mcg capsule, w/inhalation device 1 cap inhalation DAILY loratadine [Allerclear] 10 mg tablet 10 mg PO DAILY ascorbic acid (vitamin C) [C-500] 500 mg tablet 500 mg PO DAILY Referrals / Follow Up: Dwayne Roth MD [Primary Care Provider] - Disposition Disposition (needs filled in before D/C Order can be placed): Home, Self Care Charges/Coding Visit Charges Inpatient E&M: 13718 Disch Hosp >30min
--- NOTE | 2025-01-09 15:17 | CASEMGMT ---
MELISSA LYN NOTE: RN CM to room. Pt sitting on edge of bed, @ bedside. Pt denies having any discharge needs/concerns. Ginger BSN MELISSA CM
[2025-01-09] MEDS: FLU VACC 2024-25(6MOS UP)/PF 45 MCG/0.5 ML SYRINGE IM (15:48)
--- NOTE | 2025-01-09 19:50 | MRI_ITS ---
PROCEDURE: Noncontrast MRI of the brain. REASON FOR EXAM: Left arm/hand numbness and tingling. Evaluate for stroke. TECHNIQUE: Multiplanar, multisequence MRI images of the brain were obtained without IV contrast. COMPARISON: Noncontrast CT brain 01/08/2025 FINDINGS: Bones of the calvarium are intact. Included upper cervical spinal cord unremarkable. Orbits, sella, and parasellar structures show no specific abnormality. The included extracranial soft tissues are unremarkable. Mild/moderate partial opacification left maxillary sinus. The remaining included paranasal sinuses and mastoid air cells are clear. The ventricles are stable in caliber and configuration. Basilar cisterns are clear. Major basilar intracranial flow voids are present. Prominent adenoids. No cerebellopontine angle mass lesion demonstrated. There are no areas of restricted diffusion. No significant focal white matter lesions on the FLAIR sequence. MRI/Brain without Contrast IMPRESSION: No acute intracranial abnormality. No significant focal white matter lesions. [id number] partial opacification left maxillary sinus. There is prominence of the adenoids, which may be reactive. Suggest correlatio n with direct inspection. Reading Location: [facility]
== END 2025-01-09 14:38 | disposition home or self-care (01) ==
LOC: ED 16:01 → PCU 19:43
PROVIDERS: Admitting Provider Internal Medicine; Emergency Provider Emergency Medicine; PCP Family Medicine; Referring Provider Internal Medicine; Visit Provider Hospitalist
DX: R29.818 Other symptoms and signs involving the nervous system (principal); J44.9 Chronic obstructive pulmonary disease, unspecified; R47.1 Dysarthria and anarthria; E87.6 Hypokalemia; R23.0 Cyanosis; K21.9 Gastro-esophageal reflux disease without esophagitis; R00.1 Bradycardia, unspecified; Z79.899 Other long term (current) drug therapy; F17.210 Nicotine dependence, cigarettes, uncomplicated; R20.2 Paresthesia of skin; Z23 Encounter for immunization; I08.1 Rheumatic disorders of both mitral and tricuspid valves
CPT/HCPCS: 36415; 70450; 70496; 70498; 70551; 71045; 80048; 80061; 82962; 83036; 84443; 84484; 85025; 85610; 85730; 90656; 93005; 93306; 94640; 94762; 97802; 99221; 99285; 99406; Q9967; A4216; G0378

== ENCOUNTER → 2025-01-14 | Outpatient (CLI) | payer OTHER, SELFPAY ==
--- NOTE | 2025-01-14 14:15 | RAD_ITS ---
PROCEDURE: Cervical spine radiographs, 6 views REASON FOR EXAM: Skin paresthesias TECHNIQUE: 6 views of the cervical spine were obtained. COMPARISON: Neck CT 01/08/2025 FINDINGS: 6 views of the cervical spine were obtained. Bones are osteopenic. Prevertebral soft tissues unremarkable. On the lateral projection, the cervical spine is imaged from the skull base through the C7-T1 interspace. No acute fracture or focal subluxation of the cervical spine. Mild multilevel degenerative disc and facet disease in the cervical spine. [id number] right neural foraminal narrowing at C4-5, to a mild degree at C5-6. Moderate left neural foraminal narrowing at C3-4, to a mild degree at C4-5. The visualized odontoid process appears intact. RAD/Cerv Spine 4 or 5 Views IMPRESSION: Osteopenia. No acute bony abnormality of the cervical spine. Mild multilevel degenerative disc and facet disease in the cervical spine, with bilateral neural foraminal narrowing as above. Reading Location: [facility]
[2025-01-14 17:47] LABS: Absolute Lymphocyte Count 2.97 X10^3/uL (0.83-4.51); Basophil# 0.05 X10^3/uL; Basophil% 0.5 % (0-1); Eosinophil# 0.13 X10^3/uL; Eosinophils% 1.2 % (0-5); Hematocrit 44.9 % (37-47); Hemoglobin 14.7 g/dL (12.0-15.0); Lymphocyte # 2.97 X10^3/ul (0.83-4.51); Lymphocyte % 26.9 % (19-41); Mean Corp Hgb Conc 32.7 g/dL (32-36); Mean Corpuscular Hgb 32.4 pg (27.0-32.0); Mean Corpuscular Volume 98.9 fL (81-99); Mean Platelet Vol. 10.8 fl (6.2-12.0); Monocyte# 0.87 X10^3/uL; Monocyte% 7.9 % (0-10); NRBC Flagged by Analyzer 0 % (0-5); Neutrophil # 6.97 X10^3/uL (2.7-7.7); Neutrophil % 63.1 % (47-70); Platelet Count 350 K/mm3 (150-450); RBC Distribution Width CV 12.9 % (11.6-14.6); RBC Distribution Width SD 47.1 fl (35.1-43.9); Red Blood Count 4.54 M/mm3 (4.2-5.4)
[2025-01-14 17:57] LABS: Erythrocyte Sedimentation Rate 1 mm/hr (0-30)
[2025-01-14 18:29] LABS: ALB/GLOB Ratio 1.1 RATIO (0.9-2.4); AST(SGOT) 15 U/L (15-37); Alanine Aminotransfer ALT/SGPT 18 U/L (13-56); Alkaline Phosphatase 96 U/L (45-117); Anion Gap 4 (5-15); BUN 11 mg/dL (7-18); BUN/Creat Ratio 14.6 RATIO (10-20); CRP < 2.90 mg/L (0.0-3.0); Calcium,Total 9.4 mg/dL (8.5-10.1); Chloride 104 mmol/L (98-107); Creatinine, Serum 0.75 mg/dL (0.55-1.02); EST Glomerular Filtration Rate 85 mL/min (>60); Est Glom Filt Rate - Afr Amer 103 mL/min (>60); Ferritin 49 ng/mL (8-252); Globulin 3.8 g/dL (2.2-4.2); Glucose 126 mg/dL (74-106); Iron 75 ug/dL (50-170); Potassium 3.7 mmol/L (3.5-5.1); Protein, Total 7.8 g/dL (6.4-8.2); Rheumatoid Factor < 10.0 IU/mL (<15); Sodium Level 139 mmol/L (136-145); T4 Free Direct 0.82 ng/dL (0.76-1.46)
[2025-01-14 18:50] LABS: Vitamin B12 376 pg/mL (211-911); Vitamin D,25 Hydroxy 64.1 ng/mL
[2025-01-16 08:09] LABS: ANTINUCLEAR ANTIBODIES DIRECT Negative (Negative)
== END | disposition home or self-care (01) ==
LOC: MTLAB 14:13
PROVIDERS: PCP Family Medicine; Referring Provider Family Medicine; Visit Provider Family Medicine
DX: R20.0 Anesthesia of skin (principal); R20.2 Paresthesia of skin; R23.1 Pallor; R79.89 Other specified abnormal findings of blood chemistry
CPT/HCPCS: 36415; 72050; 80053; 82306; 82607; 82728; 83540; 84439; 84443; 85025; 85652; 86038; 86140; 86431

== ENCOUNTER → 2025-08-15 | Outpatient (CLI) | payer OTHER, SELFPAY | END | disposition home or self-care (01) | LOC: MFPLAB 08:25 | PROVIDERS: PCP Family Medicine; Visit Provider Family Medicine | DX: E03.8 Other specified hypothyroidism (principal) | CPT/HCPCS: 36415; 84439; 84443 ==